=== PATIENT | female | born 1940 | race Hispanic/Latino ===

== ENCOUNTER 2021-02-25 09:49 | Inpatient (IN) | payer MEDICARE ==
[2021-02-25 11:41] LABS: #Basophils 0.1 thou/uL (0.0-0.2); #Eosinphils 0.2 thou/uL (0.0-0.7); #Lymphocytes 1.7 thou/uL (1.20-3.40); #Monocytes 0.6 thou/uL (0.11-0.59); #Neutrophils 2.4 thou/uL (1.40-6.50); %Basophils 1.3 % (0.0-1.0); %Eosinophils 4.6 % (0.0-10.0); %Lymphocytes 34.3 % (21.0-51.0); %Monocytes 11.1 % (0.0-10.0); %Neutrophils 48.7 % (42.0-75.0); Hemoglobin 11.1 g/dL (12.0-16.0); Mean Corpuscular HGB CONC 33.2 g/dL (32.0-36.0); Mean Corpuscular Hemoglobin 31.7 pg (27.0-31.0); Mean Corpuscular Volume 95.5 fL (78.0-98.0); Mean Platelet Volume 6.4 fL (7.4-10.4); Platelet Count 143 thou/uL (130-400); RBC Distribution Width 14.3 % (11.5-14.5)
[2021-02-25 12:04] LABS: ALT (SGPT) 12 U/L (8-55); AST (SGOT) 27 U/L (5-34); Albumin 2.1 g/dL (3.4-4.8); Alkaline Phosphatase 128 U/L (40-110); Anion Gap 13 mmol/L (10-20); BUN (Urea Nitrogen) 32 mg/dL (9.8-20.1); Bilirubin, Total 0.6 mg/dL (0.2-1.2); Calc. Creatinine Clearance 0 mL/min (70-130); Calcium 7.4 mg/dL (7.8-10.44); Carbon Dioxide 19 mmol/L (23-31); Chloride 106 mmol/L (98-107); Globulin 3.9 g/dL (2.4-3.5); Glucose 127 mg/dL (83-110); Potassium 4.1 mmol/L (3.5-5.1); Sodium 134 mmol/L (136-145)
[2021-02-25 12:08] LABS: Bacteria/HPF 4+ HPF (None Seen); Bilirubin Negative (Negative); Blood, Urine Negative (Negative); Clarity Turbid (Clear); Glucose, Urine (Dipstick) Normal (Negative); Ketone, Urine Trace mg/dL (Negative); Leukocyte 500 Leu/uL (Negative); Nitrite Negative (Negative); Protein, Urine (Dipstick) 20 mg/dL (Neg-Trace); RBC/HPF 0-3 HPF (0-3); Specific Gravity, Urine 1.016 (1.002-1.036); Squamous Epithelial 0-3 HPF (0-3); Urobilinogen Normal mg/dL (Less than 2); WBC/HPF Greater than 50 HPF (0-3); pH, Urine 6.5 (5.0-9.0)
[2021-02-25 13:32] LABS: SARS-CoV-2 NAA Rapid Test DETECTED (NotDetected)
[2021-02-25] MEDS ORDERED: Ondansetron ODT 4 MG TAB PO PRN (13:41)
[2021-02-25] MEDS ORDERED: Ondansetron PF 4 MG/2 ML Vial IVP PRN (13:41)
[2021-02-25] MEDS ORDERED: Acetaminophen 650 MG Suppository PR PRN (13:41)
[2021-02-25] MEDS ORDERED: Acetaminophen 325 MG TAB PO PRN (13:41)
[2021-02-25] MEDS ORDERED: HumaLOG 300 UNITS/3 ML VIAL SC PRN (14:20)
[2021-02-25] MEDS ORDERED: Dextrose 5% in Water 1,000 ML IV PRN (14:20)
[2021-02-25] MEDS ORDERED: Dextrose 50% Abboject 50 ML SYRINGE SLOW IVP PRN (14:20)
[2021-02-25] MEDS ORDERED: Cefepime 1 GM in Sodium Chloride 0.9% 100 ML IVPB SCH (15:00)
[2021-02-25 21:29] VITALS: BMI 25.5
[2021-02-26 05:22] LABS: #Eosinphils 0.2 thou/uL (0.0-0.7); #Lymphocytes 1.2 thou/uL (1.20-3.40); #Monocytes 0.5 thou/uL (0.11-0.59); %Basophils 0.8 % (0.0-1.0); %Eosinophils 4.8 % (0.0-10.0); %Lymphocytes 29.6 % (21.0-51.0); %Monocytes 12.7 % (0.0-10.0); Hemoglobin 9.2 g/dL (12.0-16.0); Mean Corpuscular HGB CONC 32.5 g/dL (32.0-36.0); Mean Corpuscular Hemoglobin 30.9 pg (27.0-31.0); Mean Corpuscular Volume 95.3 fL (78.0-98.0); Mean Platelet Volume 6.4 fL (7.4-10.4); Platelet Count 133 thou/uL (130-400); RBC Distribution Width 14.2 % (11.5-14.5); Red Blood Cell (RBC) Count 2.97 mill/uL (4.20-5.40); White Blood Cell (WBC) Count 3.9 thou/uL (4.8-10.8)
[2021-02-26] MEDS ORDERED: Nystatin Powder 15 GM BOT TOP PRN (05:27)
[2021-02-26 05:41] LABS: Anion Gap 10 mmol/L (10-20); BUN (Urea Nitrogen) 33 mg/dL (9.8-20.1); Calc. Creatinine Clearance 13 mL/min (70-130); Calcium 8.3 mg/dL (7.8-10.44); Carbon Dioxide 25 mmol/L (23-31); Chloride 110 mmol/L (98-107); Glucose 76 mg/dL (83-110); Potassium 3.9 mmol/L (3.5-5.1); Sodium 141 mmol/L (136-145)
[2021-02-26] MEDS ORDERED: Levothyroxine Sodium 75 MCG TAB PO SCH (06:00)
[2021-02-26] MEDS ORDERED: Calcium Carbonate 500 MG ChewTAB PO PRN (06:32)
[2021-02-26] MEDS ORDERED: Cepastat Lozenges 1 LOZ PO PRN (06:32)
[2021-02-26] MEDS ORDERED: hydrALAZINE 20 MG/ML VIAL SLOW IVP PRN (06:32)
[2021-02-26] MEDS ORDERED: GUAIFENESIN SF SOLN 200 MG/10 ML UDCUP PO PRN (06:32)
[2021-02-26] MEDS ORDERED: Benzonatate 100 MG CAP PO PRN (06:32)
[2021-02-26] MEDS ORDERED: Artificial Tear Sol 15 ML BOT EA EYE PRN (06:32)
[2021-02-26] MEDS ORDERED: Hydrocerin (Eucerin) Cream 120 gm Jar TOP PRN (06:32)
[2021-02-26] MEDS ORDERED: Sodium Chloride 0.65% Nasal 44 ML BOT EA NARE PRN (06:32)
[2021-02-26] MEDS ORDERED: Aspirin 81 mg Enteric Coated Tablet PO SCH (09:00)
[2021-02-26] MEDS ORDERED: Albuterol 200 PUFF (6.7GM INHALER) INH PRN (09:29)
[2021-02-26 10:43] LABS: HBSAg Index 0.22 S/CO (0-0.99); Hep B Surf Ag Non-Reactive S/CO (NonReactive)
[2021-02-26] MEDS: Ascorbic Acid 500 mg Chewable Tablet PO SCH (10:53)
[2021-02-26] MEDS: Cholecalciferol 1,000 UNITS (25 MCG) TAB PO SCH (10:53)
[2021-02-26] MEDS: Sevelamer Carbonate 800 MG TAB PO SCH ×2 (12:19→18:12)
[2021-02-26] MEDS: Cefepime 0.5 GM in Sodium Chloride 0.9% 100 ML IVPB SCH (14:44)
[2021-02-26] MEDS: Albuterol 200 PUFF (6.7GM INHALER) INH SCH ×2 (14:44→18:13)
[2021-02-26] MEDS: Mometasone 200 MCG/Formoterol 5 MCG 120 PUFF INHALER INH SCH (18:46)
[2021-02-26] MEDS: Rifaximin 550 MG TAB PO SCH (20:58)
[2021-02-27] MEDS: Albuterol 200 PUFF (6.7GM INHALER) INH SCH ×4 (01:00→18:44)
[2021-02-27 04:37] LABS: ALT (SGPT) 10 U/L (8-55); AST (SGOT) 23 U/L (5-34); Albumin 1.7 g/dL (3.4-4.8); Alkaline Phosphatase 84 U/L (40-110); Bilirubin, Direct 0.3 mg/dL (0.1-0.3); Bilirubin, Total 0.5 mg/dL (0.2-1.2); Phosphorus 2.1 mg/dL (2.3-4.7); Protein, Total 4.9 g/dL (5.8-8.1)
[2021-02-27 04:38] LABS: Anion Gap 8 mmol/L (10-20); BUN (Urea Nitrogen) 15 mg/dL (9.8-20.1); Calc. Creatinine Clearance 19 mL/min (70-130); Calcium 7.9 mg/dL (7.8-10.44); Carbon Dioxide 29 mmol/L (23-31); Chloride 107 mmol/L (98-107); Glucose 80 mg/dL (83-110); Magnesium 1.8 mg/dL (1.6-2.6); Potassium 3.6 mmol/L (3.5-5.1); Sodium 140 mmol/L (136-145)
[2021-02-27] MEDS: Levothyroxine Sodium 88 MCG TAB PO SCH (05:21)
[2021-02-27 06:03] LABS: #Eosinphils 0.2 thou/uL (0.0-0.7); #Lymphocytes 1.2 thou/uL (1.20-3.40); #Monocytes 0.5 thou/uL (0.11-0.59); #Neutrophils 1.8 thou/uL (1.40-6.50); %Basophils 0.8 % (0.0-1.0); %Eosinophils 6.1 % (0.0-10.0); %Lymphocytes 31.6 % (21.0-51.0); %Monocytes 14.2 % (0.0-10.0); %Neutrophils 47.3 % (42.0-75.0); Hemoglobin 8.7 g/dL (12.0-16.0); Mean Corpuscular HGB CONC 32.8 g/dL (32.0-36.0); Mean Corpuscular Hemoglobin 31.1 pg (27.0-31.0); Mean Corpuscular Volume 94.9 fL (78.0-98.0); Mean Platelet Volume 6.5 fL (7.4-10.4); Platelet Count 93 thou/uL (130-400); Platelet Morphology Comment Appears Decreased; RBC Distribution Width 14.1 % (11.5-14.5); Red Blood Cell (RBC) Count 2.79 mill/uL (4.20-5.40); White Blood Cell (WBC) Count 3.7 thou/uL (4.8-10.8)
[2021-02-27] MEDS: Mometasone 200 MCG/Formoterol 5 MCG 120 PUFF INHALER INH SCH ×2 (06:28→18:43)
[2021-02-27] MEDS ORDERED: PHOS-NAK 1 PKT PACK PO SCH (07:15)
[2021-02-27] MEDS: Aspirin 81 mg Enteric Coated Tablet PO SCH (08:51)
[2021-02-27] MEDS: Rifaximin 550 MG TAB PO SCH ×2 (08:51→21:01)
[2021-02-27] MEDS: Zinc Sulfate 220 MG CAP PO SCH (08:51)
[2021-02-27] MEDS: Sevelamer Carbonate 800 MG TAB PO SCH ×3 (08:51→17:20)
[2021-02-27] MEDS: Ferrous Sulfate 325 MG TAB PO SCH (08:52)
[2021-02-27] MEDS: Cholecalciferol 1,000 UNITS (25 MCG) TAB PO SCH (08:52)
[2021-02-27] MEDS: Ascorbic Acid 500 mg Chewable Tablet PO SCH (08:52)
[2021-02-27] MEDS ORDERED: Cholecalciferol 1,000 UNITS (25 MCG) TAB PO SCH (09:00)
[2021-02-27] MEDS: HumaLOG 300 UNITS/3 ML VIAL SC PRN ×2 (11:47→17:27)
[2021-02-27] MEDS: Cefepime 0.5 GM in Sodium Chloride 0.9% 100 ML IVPB SCH (14:44)
[2021-02-28] MEDS: Albuterol 200 PUFF (6.7GM INHALER) INH SCH ×3 (01:23→15:16)
[2021-02-28] MEDS: Mometasone 200 MCG/Formoterol 5 MCG 120 PUFF INHALER INH SCH (06:13)
[2021-02-28] MEDS: Levothyroxine Sodium 88 MCG TAB PO SCH (06:13)
[2021-02-28 07:18] LABS: #Eosinphils 0.2 thou/uL (0.0-0.7); #Lymphocytes 1.2 thou/uL (1.20-3.40); #Monocytes 0.5 thou/uL (0.11-0.59); #Neutrophils 2.2 thou/uL (1.40-6.50); %Basophils 0.9 % (0.0-1.0); %Eosinophils 5.7 % (0.0-10.0); %Lymphocytes 29.1 % (21.0-51.0); %Monocytes 11.7 % (0.0-10.0); %Neutrophils 52.6 % (42.0-75.0); Hemoglobin 9.2 g/dL (12.0-16.0); Mean Corpuscular HGB CONC 31.9 g/dL (32.0-36.0); Mean Corpuscular Hemoglobin 30.3 pg (27.0-31.0); Mean Platelet Volume 6.6 fL (7.4-10.4); Platelet Count 109 thou/uL (130-400); RBC Distribution Width 13.9 % (11.5-14.5); Red Blood Cell (RBC) Count 3.03 mill/uL (4.20-5.40); White Blood Cell (WBC) Count 4.3 thou/uL (4.8-10.8)
[2021-02-28 07:24] LABS: Anion Gap 10 mmol/L (10-20); BUN (Urea Nitrogen) 23 mg/dL (9.8-20.1); Calc. Creatinine Clearance 13 mL/min (70-130); Calcium 7.7 mg/dL (7.8-10.44); Carbon Dioxide 26 mmol/L (23-31); Chloride 105 mmol/L (98-107); Glucose 83 mg/dL (83-110); Sodium 137 mmol/L (136-145)
[2021-02-28 07:27] VITALS: TEMP 98
[2021-02-28] MEDS: Sevelamer Carbonate 800 MG TAB PO SCH ×2 (07:49→13:07)
[2021-02-28] MEDS: Rifaximin 550 MG TAB PO SCH (07:49)
[2021-02-28] MEDS: Aspirin 81 mg Enteric Coated Tablet PO SCH (07:49)
[2021-02-28] MEDS: Ferrous Sulfate 325 MG TAB PO SCH (07:49)
[2021-02-28] MEDS: Zinc Sulfate 220 MG CAP PO SCH (07:49)
[2021-02-28] MEDS: Ascorbic Acid 500 mg Chewable Tablet PO SCH (07:49)
[2021-02-28] MEDS: Cholecalciferol 1,000 UNITS (25 MCG) TAB PO SCH (07:50)
[2021-02-28 15:12] VITALS: BP 168/75
[2021-02-28] MEDS: Cefepime 0.5 GM in Sodium Chloride 0.9% 100 ML IVPB SCH (15:16)
== END 2021-02-28 16:09 | disposition home or self-care (01) | DRG 441 ==
LOC: ERS 09:49 → T4-B 13:08
PROVIDERS: ADMIT Internal Medicine; ATTEND Internal Medicine
PROC: 5A1D70Z Performance of Urinary Filtration, Intermittent, Less than 6 Hours Per Day (ICD-10-PCS; principal; 2021-02-25)
PROC: 8E0ZXY6 Isolation (ICD-10-PCS; 2021-02-25)
DX: K72.90 Hepatic failure, unspecified without coma (principal); U07.1 COVID-19; N18.6 End stage renal disease; G93.41 Metabolic encephalopathy; N30.00 Acute cystitis without hematuria; I12.0 Hypertensive chronic kidney disease with stage 5 chronic kidney disease or end stage renal disease; T82.49XA Other complication of vascular dialysis catheter, initial encounter; E78.5 Hyperlipidemia, unspecified; F32.A Depression, unspecified; J44.9 Chronic obstructive pulmonary disease, unspecified; E11.9 Type 2 diabetes mellitus without complications; I25.10 Atherosclerotic heart disease of native coronary artery without angina pectoris; K74.60 Unspecified cirrhosis of liver; D63.1 Anemia in chronic kidney disease; Y83.8 Other surgical procedures as the cause of abnormal reaction of the patient, or of later complication, without mention of misadventure at the time of the procedure; Z99.2 Dependence on renal dialysis; Z88.1 Allergy status to other antibiotic agents; Z88.5 Allergy status to narcotic agent; Z88.8 Allergy status to other drugs, medicaments and biological substances; Z79.899 Other long term (current) drug therapy; Z79.4 Long term (current) use of insulin; Z95.1 Presence of aortocoronary bypass graft; Z90.710 Acquired absence of both cervix and uterus; Z91.14 Patient's other noncompliance with medication regimen
CPT/HCPCS: 0240U; 36415; 36416; 71045; 80048; 80053; 80076; 81003; 81015; 82140; 83735; 84100; 84484; 85025; 87340; 90935; 93005; 93931; G0257; J0692; J1815; J1956; J3490

== ENCOUNTER 2021-05-13 08:13 | Inpatient (IN) | payer MEDICARE ==
[2021-05-13 08:56] LABS: Bilirubin Negative (Negative); Blood, Urine Negative (Negative); Glucose, Urine (Dipstick) Negative (Negative); Ketone, Urine Negative (Negative); Leukocyte Trace (Negative); Nitrite Negative (Negative); Protein, Urine (Dipstick) 30 mg/dL (Neg-Trace); Urobilinogen 0.2 mg/dL (Less than 2)
[2021-05-13 09:01] LABS: Clarity Cloudy (Clear)
[2021-05-13 09:05] LABS: Amphetamine Not Detected (NotDetected); Barbiturates Screen Not Detected (NotDetected); Benzodiazepine Screen Not Detected (NotDetected); Cocaine Metabolite Screen Not Detected (NotDetected); Methadone Not Detected (NotDetected); Methamphetamine Not Detected (NotDetected); Opiate Screen Not Detected (NotDetected); Oxycodone Screen Not Detected (NotDetected); Phencyclidine (PCP) Not Detected (NotDetected); THC/Cannabinoid Screen Not Detected (NotDetected); Tricyclic Screen Not Detected (NotDetected)
[2021-05-13 09:06] LABS: RBC/HPF 0-3 HPF (0-3)
[2021-05-13 09:07] LABS: Bacteria/HPF 4+ HPF (None Seen); Squamous Epithelial 0-3 HPF (0-3)
[2021-05-13 09:13] LABS: #Eosinphils 0.2 thou/uL (0.0-0.7); #Lymphocytes 1.1 thou/uL (1.20-3.40); #Monocytes 0.5 thou/uL (0.11-0.59); #Neutrophils 2.4 thou/uL (1.40-6.50); %Basophils 0.9 % (0.0-1.0); %Eosinophils 4.3 % (0.0-10.0); %Lymphocytes 25.3 % (21.0-51.0); %Monocytes 12.1 % (0.0-10.0); %Neutrophils 57.4 % (42.0-75.0); Hemoglobin 11.2 g/dL (12.0-16.0); Mean Corpuscular HGB CONC 32.5 g/dL (32.0-36.0); Mean Corpuscular Hemoglobin 31.7 pg (27.0-31.0); Mean Corpuscular Volume 97.4 fL (78.0-98.0); Mean Platelet Volume 7.1 fL (7.4-10.4); Platelet Count 120 thou/uL (130-400); RBC Distribution Width 15.7 % (11.5-14.5); Red Blood Cell (RBC) Count 3.53 mill/uL (4.20-5.40); White Blood Cell (WBC) Count 4.2 thou/uL (4.8-10.8)
[2021-05-13 09:26] LABS: ALT (SGPT) 18 U/L (8-55); AST (SGOT) 26 U/L (5-34); Acetaminophen Less than 6.0 mcg/mL (10.0-30.0); Albumin 2.8 g/dL (3.4-4.8); Alcohol Less than 10 mg/dL (Less than 10); Alkaline Phosphatase 135 U/L (40-110); Anion Gap 14 mmol/L (10-20); BUN (Urea Nitrogen) 28 mg/dL (9.8-20.1); Bilirubin, Total 0.6 mg/dL (0.2-1.2); Calc. Creatinine Clearance 0 mL/min (70-130); Calcium 8.8 mg/dL (7.8-10.44); Carbon Dioxide 26 mmol/L (23-31); Chloride 106 mmol/L (98-107); Globulin 3.7 g/dL (2.4-3.5); Glucose 108 mg/dL (83-110); Magnesium 2.1 mg/dL (1.6-2.6); Potassium 3.9 mmol/L (3.5-5.1); Protein, Total 6.5 g/dL (5.8-8.1); Salicylate Less than 8.0 mg/dL (15.0-30.0); Sodium 142 mmol/L (136-145)
[2021-05-13 09:27] LABS: INR-International Normal Ratio 1.1; Prothrombin Time 13.8 sec (12.0-14.7)
[2021-05-13 09:28] LABS: PTT 30.4 sec (22.9-36.1)
[2021-05-13] MEDS ORDERED: cefTRIAXone\\ROCEPHIN 1 GM VIAL ONE (10:28)
[2021-05-13] MEDS ORDERED: Ondansetron ODT 4 MG TAB PO PRN (10:55)
[2021-05-13] MEDS ORDERED: Ondansetron PF 4 MG/2 ML Vial IVP PRN (10:55)
[2021-05-13] MEDS ORDERED: Calcium Carbonate 500 MG ChewTAB PO PRN (10:55)
[2021-05-13] MEDS ORDERED: Dextrose 50% Abboject 50 ML SYRINGE SLOW IVP PRN (11:32)
[2021-05-13] MEDS ORDERED: Dextrose 5% in Water 1,000 ML IV PRN (11:32)
[2021-05-13] MEDS ORDERED: HumaLOG 300 UNITS/3 ML VIAL SC PRN ×2 (11:32)
[2021-05-13 12:45] VITALS: BMI 22.7
[2021-05-13] MEDS ORDERED: Heparin 5,000 UNITS/ML VIAL SC SCH (15:00)
[2021-05-13] MEDS: hydrALAZINE 25 MG TAB PO SCH ×4 (15:08→22:02)
[2021-05-13 15:39] LABS: Free T4 (Free Thyroxine) 1.4 ng/dL (0.70-1.48)
[2021-05-13] MEDS ORDERED: hydrALAZINE 20 MG/ML VIAL SLOW IVP PRN (15:58)
[2021-05-13] MEDS ORDERED: Dextrose 5 %-0.45 % NaCl 1,000 ML IV SCH (16:15)
[2021-05-13 19:26] LABS: Hemoglobin 10.9 g/dL (12.0-16.0)
[2021-05-13] MEDS: Rifaximin 550 MG TAB PO SCH (22:01)
[2021-05-13] MEDS: Famotidine/PF 20 mg/2ml Vial SLOW IVP SCH (22:01)
[2021-05-13] MEDS: Betamethasone Val 0.1% OINT 15 GM TUBE TOP SCH (22:02)
[2021-05-13] MEDS: Chlorhexidine Gluconate 15 ML UDCUP SSP SCH (22:03)
[2021-05-13] MEDS: Lantus 1000 UNITS/10 ML VIAL SC SCH (22:04)
[2021-05-14 04:29] LABS: Eosinophils 3 % (0-10); Hemoglobin 11.8 g/dL (12.0-16.0); Lymphocytes 28 % (21-51); MDiff Complete? YES; Mean Corpuscular HGB CONC 31.3 g/dL (32.0-36.0); Mean Corpuscular Volume 99.3 fL (78.0-98.0); Mean Platelet Volume 7.5 fL (7.4-10.4); Monocytes 8 % (0-10); Neutrophil 60 % (42-75); Platelet Count 65 thou/uL (130-400); Platelet Morphology Comment Appears Decreased; RBC Distribution Width 15.9 % (11.5-14.5); Red Blood Cell (RBC) Count 3.81 mill/uL (4.20-5.40); White Blood Cell (WBC) Count 4.4 thou/uL (4.8-10.8)
[2021-05-14 04:55] LABS: ALT (SGPT) 23 U/L (8-55); AST (SGOT) 53 U/L (5-34); Albumin 2.6 g/dL (3.4-4.8); Alkaline Phosphatase 111 U/L (40-110); Anion Gap 16 mmol/L (10-20); BUN (Urea Nitrogen) 32 mg/dL (9.8-20.1); Bilirubin, Total 0.7 mg/dL (0.2-1.2); Calc. Creatinine Clearance 13 mL/min (70-130); Calcium 8.7 mg/dL (7.8-10.44); Carbon Dioxide 21 mmol/L (23-31); Chloride 109 mmol/L (98-107); Glucose 135 mg/dL (83-110); Potassium 4.4 mmol/L (3.5-5.1); Protein, Total 6.6 g/dL (5.8-8.1); Sodium 142 mmol/L (136-145)
[2021-05-14] MEDS: Levothyroxine Sodium 88 MCG TAB PO SCH (06:15)
[2021-05-14] MEDS: Cholecalciferol 1,000 UNITS (25 MCG) TAB PO SCH (09:32)
[2021-05-14] MEDS: Lantus 1000 UNITS/10 ML VIAL SC SCH ×2 (09:32→21:29)
[2021-05-14] MEDS: Ascorbic Acid 500 mg Chewable Tablet PO SCH (09:32)
[2021-05-14] MEDS: Aspirin 81 mg Enteric Coated Tablet PO SCH (09:32)
[2021-05-14] MEDS: Ferrous Sulfate 325 MG TAB PO SCH (09:32)
[2021-05-14] MEDS: Zinc Sulfate 220 MG CAP PO SCH (09:32)
[2021-05-14] MEDS: Rifaximin 550 MG TAB PO SCH ×2 (09:32→21:26)
[2021-05-14] MEDS: hydrALAZINE 25 MG TAB PO SCH ×2 (09:32→21:27)
[2021-05-14] MEDS: Betamethasone Val 0.1% OINT 15 GM TUBE TOP SCH ×2 (09:33→21:28)
[2021-05-14] MEDS: Chlorhexidine Gluconate 15 ML UDCUP SSP SCH ×2 (09:36→21:29)
[2021-05-14] MEDS: cefTRIAXone\\ROCEPHIN 1 GM in Sodium Chloride 0.9% 100 ML IVPB SCH (12:36)
[2021-05-14] MEDS ORDERED: Famotidine 20 MG TAB PO SCH (21:00)
[2021-05-14] MEDS: Famotidine/PF 20 mg/2ml Vial SLOW IVP SCH (21:26)
[2021-05-14 23:15] LABS: SARS-CoV-2 PCR by NAA DETECTED (NotDetected)
[2021-05-15 05:21] LABS: #Eosinphils 0.5 thou/uL (0.0-0.7); #Lymphocytes 1.1 thou/uL (1.20-3.40); #Monocytes 0.6 thou/uL (0.11-0.59); #Neutrophils 2.8 thou/uL (1.40-6.50); %Basophils 0.7 % (0.0-1.0); %Eosinophils 10.6 % (0.0-10.0); %Lymphocytes 21.1 % (21.0-51.0); %Monocytes 12.6 % (0.0-10.0); %Neutrophils 55.1 % (42.0-75.0); Hemoglobin 10.3 g/dL (12.0-16.0); Mean Corpuscular Hemoglobin 31.1 pg (27.0-31.0); Mean Corpuscular Volume 97.3 fL (78.0-98.0); Platelet Count 123 thou/uL (130-400); RBC Distribution Width 15.7 % (11.5-14.5); White Blood Cell (WBC) Count 5.1 thou/uL (4.8-10.8)
[2021-05-15 05:47] LABS: ALT (SGPT) 16 U/L (8-55); AST (SGOT) 22 U/L (5-34); Albumin 2.5 g/dL (3.4-4.8); Alkaline Phosphatase 102 U/L (40-110); Anion Gap 16 mmol/L (10-20); BUN (Urea Nitrogen) 35 mg/dL (9.8-20.1); Bilirubin, Total 0.6 mg/dL (0.2-1.2); Calc. Creatinine Clearance 10 mL/min (70-130); Calcium 8.1 mg/dL (7.8-10.44); Carbon Dioxide 21 mmol/L (23-31); Chloride 110 mmol/L (98-107); Globulin 3.3 g/dL (2.4-3.5); Glucose 106 mg/dL (83-110); Potassium 3.5 mmol/L (3.5-5.1); Protein, Total 5.8 g/dL (5.8-8.1); Sodium 143 mmol/L (136-145)
[2021-05-15] MEDS: Levothyroxine Sodium 88 MCG TAB PO SCH (05:50)
[2021-05-15] MEDS: Levothyroxine Sodium 75 MCG TAB PO SCH ×2 (05:52→09:25)
[2021-05-15] MEDS: hydrALAZINE 25 MG TAB PO SCH (09:24)
[2021-05-15] MEDS: Zinc Sulfate 220 MG CAP PO SCH (09:24)
[2021-05-15] MEDS: Aspirin 81 mg Enteric Coated Tablet PO SCH (09:24)
[2021-05-15] MEDS: Ferrous Sulfate 325 MG TAB PO SCH (09:24)
[2021-05-15] MEDS: Ascorbic Acid 500 mg Chewable Tablet PO SCH (09:24)
[2021-05-15] MEDS: Rifaximin 550 MG TAB PO SCH (09:25)
[2021-05-15] MEDS: Cholecalciferol 1,000 UNITS (25 MCG) TAB PO SCH (09:25)
[2021-05-15] MEDS: Chlorhexidine Gluconate 15 ML UDCUP SSP SCH (10:16)
[2021-05-15 11:53] LABS: HBSAB Concentration Less than 8.00 mIU/mL; HBSAg Index 0.26 S/CO (0-0.99); Hep B Surf AB Non-Reactive (NonReactive); Hep B Surf Ag Non-Reactive S/CO (NonReactive)
[2021-05-15] MEDS: Betamethasone Val 0.1% OINT 15 GM TUBE TOP SCH (11:56)
[2021-05-15] MEDS: Lantus 1000 UNITS/10 ML VIAL SC SCH (11:56)
[2021-05-15] MEDS: cefTRIAXone\\ROCEPHIN 1 GM in Sodium Chloride 0.9% 100 ML IVPB SCH (12:05)
[2021-05-15 16:48] VITALS: BP 157/59; TEMP 97.4
== END 2021-05-15 18:18 | disposition home or self-care (01) | DRG 441 ==
LOC: ERS 08:13 → 2NO 10:55 → SURG B 05-14 14:32 → T4-A 05-15 08:34
PROVIDERS: ADMIT Internal Medicine; ATTEND Family Medicine
PROC: 8E0ZXY6 Isolation (ICD-10-PCS; 2021-05-13)
PROC: 5A1D70Z Performance of Urinary Filtration, Intermittent, Less than 6 Hours Per Day (ICD-10-PCS; principal; 2021-05-15)
DX: K72.00 Acute and subacute hepatic failure without coma (principal); N18.6 End stage renal disease; U07.1 COVID-19; K76.7 Hepatorenal syndrome; N30.00 Acute cystitis without hematuria; I12.0 Hypertensive chronic kidney disease with stage 5 chronic kidney disease or end stage renal disease; B96.1 Klebsiella pneumoniae [K. pneumoniae] as the cause of diseases classified elsewhere; E03.9 Hypothyroidism, unspecified; K74.60 Unspecified cirrhosis of liver; I25.10 Atherosclerotic heart disease of native coronary artery without angina pectoris; L40.9 Psoriasis, unspecified; E11.22 Type 2 diabetes mellitus with diabetic chronic kidney disease; R94.31 Abnormal electrocardiogram [ECG] [EKG]; D63.1 Anemia in chronic kidney disease; F32.A Depression, unspecified; Z99.2 Dependence on renal dialysis; Z88.6 Allergy status to analgesic agent; Z88.1 Allergy status to other antibiotic agents; Z88.8 Allergy status to other drugs, medicaments and biological substances; Z79.899 Other long term (current) drug therapy; Z79.82 Long term (current) use of aspirin; Z79.4 Long term (current) use of insulin; Z79.890 Hormone replacement therapy; Z95.1 Presence of aortocoronary bypass graft; Z90.710 Acquired absence of both cervix and uterus
CPT/HCPCS: 36415; 36416; 51701; 70450; 71045; 80053; 80306; 80307; 81003; 81015; 82140; 83735; 84439; 84443; 84481; 84484; 85007; 85025; 85027; 85610; 85730; 86706; 87077; 87086; 87186; 87340; 93005; 94760; 96365; 96366; J0696; J1644; J1815; J3490; J7042; S0028; U0003; U0005

== ENCOUNTER 2021-07-19 13:26 | Outpatient (CLI) | payer MEDICARE | END 2021-07-19 13:27 | disposition home or self-care (01) | LOC: ULT 13:26 | PROVIDERS: ATTEND Student in an Organized Health Care Education/Training Program | DX: I35.0 Nonrheumatic aortic (valve) stenosis (principal); I07.1 Rheumatic tricuspid insufficiency | CPT/HCPCS: 93306 ==

== ENCOUNTER 2022-09-26 08:52 | Outpatient (CLI) | payer OTHER | END 2022-09-26 08:53 | disposition home or self-care (01) | LOC: SCSMRI 08:52 | PROVIDERS: ATTEND Student in an Organized Health Care Education/Training Program | DX: K86.2 Cyst of pancreas (principal) | CPT/HCPCS: 74183 ==

== ENCOUNTER 2022-11-07 20:43 | Inpatient (IN) | payer MEDICARE, OTHER ==
[2022-11-07 21:38] LABS: #Eosinphils 0.1 thou/uL (0.0-0.7); #Monocytes 0.4 thou/uL (0.11-0.59); %Basophils 1.6 % (0.0-1.0); %Eosinophils 4.8 % (0.0-10.0); %Monocytes 16.8 % (0.0-10.0); %Neutrophils 38.8 % (42.0-75.0); Hemoglobin 7.8 g/dL (12.0-16.0); Mean Corpuscular HGB CONC 31.5 g/dL (32.0-36.0); Mean Corpuscular Hemoglobin 31.7 pg (27.0-31.0); Mean Corpuscular Volume 100.8 fl (78.0-98.0); Mean Platelet Volume 10.1 fL (7.4-10.4); Platelet Count 126 10x3/uL (130-400); RBC Distribution Width 17.1 % (11.5-14.5); Red Blood Cell (RBC) Count 2.46 mill/uL (4.20-5.40); White Blood Cell (WBC) Count 2.5 10x3/uL (4.8-10.8)
[2022-11-07 22:03] LABS: ALT (SGPT) 9 U/L (8-55); AST (SGOT) 16 U/L (5-34); Alkaline Phosphatase 89 U/L (40-110); Anion Gap 21 mmol/L (10-20); BUN (Urea Nitrogen) 62 mg/dL (9.8-20.1); Bilirubin, Total 0.3 mg/dL (0.2-1.2); CK (CPK) 67 U/L (29-168); Calc. Creatinine Clearance 0 mL/min (70-130); Carbon Dioxide 20 mmol/L (23-31); Chloride 105 mmol/L (98-107); Estimated GFR 4; Globulin 2.7 g/dL (2.4-3.5); Glucose 142 mg/dL (83-110); Potassium 4.7 mmol/L (3.5-5.1); Protein, Total 5.7 g/dL (5.8-8.1); Sodium 141 mmol/L (136-145)
[2022-11-07] MEDS ORDERED: Vancomycin 1 GM/200 ML (FROZEN) BAG ONE (22:11)
[2022-11-07 22:34] LABS: Bacteria/HPF 4+ HPF (None Seen); Bilirubin Negative (Negative); Blood, Urine 2+ (Negative); CAUTI Indications for Culture Alt mental st,lethar; Clarity Extra Turbid (Clear); Glucose, Urine (Dipstick) Normal (Negative); Ketone, Urine Negative (Negative); Leukocyte 500 Leu/uL (Negative); Nitrite Negative (Negative); Protein, Urine (Dipstick) 100 mg/dL (Neg-Trace); Specific Gravity, Urine 1.015 (1.002-1.036); Urobilinogen Normal mg/dL (Less than 2); WBC/HPF Greater than 50 HPF (0-3); pH, Urine 6.5 (5.0-9.0)
[2022-11-07 22:36] LABS: Urine Culture Reflex Yes Yes
[2022-11-07] MEDS ORDERED: Ondansetron PF 4 MG/2 ML Vial IVP PRN (23:56)
[2022-11-07] MEDS ORDERED: Dextrose 5% in Water 1,000 ML IV PRN (23:57)
[2022-11-07] MEDS ORDERED: HumaLOG 300 UNITS/3 ML VIAL SC PRN (23:57)
[2022-11-07] MEDS ORDERED: Dextrose 50% Abboject 50 ML SYRINGE SLOW IVP PRN (23:57)
[2022-11-07] MEDS ORDERED: Glucagon 1 MG/ML KIT IM PRN (23:57)
[2022-11-08] MEDS: Cefepime 1 GM in Sodium Chloride 0.9% 100 ML IVPB SCH (00:45)
[2022-11-08 01:27] VITALS: BMI 24.0
[2022-11-08 04:55] LABS: #Eosinphils 0.1 thou/uL (0.0-0.7); #Monocytes 0.5 thou/uL (0.11-0.59); #Neutrophils 1.2 thou/uL (1.40-6.50); %Basophils 1.5 % (0.0-1.0); %Eosinophils 4.8 % (0.0-10.0); %Lymphocytes 30.3 % (21.0-51.0); %Monocytes 18.1 % (0.0-10.0); %Neutrophils 44.9 % (42.0-75.0); Mean Corpuscular Hemoglobin 31.1 pg (27.0-31.0); Mean Platelet Volume 10.3 fL (7.4-10.4); RBC Distribution Width 17.1 % (11.5-14.5); Red Blood Cell (RBC) Count 2.57 mill/uL (4.20-5.40); White Blood Cell (WBC) Count 2.7 10x3/uL (4.8-10.8)
[2022-11-08 05:02] LABS: Platelet Count 113 10x3/uL (130-400)
[2022-11-08 05:12] LABS: Mean Corpuscular Volume 103.9 fl (78.0-98.0)
[2022-11-08 05:23] LABS: ALT (SGPT) 10 U/L (8-55); AST (SGOT) 17 U/L (5-34); Albumin 2.8 g/dL (3.4-4.8); Alkaline Phosphatase 75 U/L (40-110); Anion Gap 19 mmol/L (10-20); BUN (Urea Nitrogen) 60 mg/dL (9.8-20.1); Bilirubin, Total 0.4 mg/dL (0.2-1.2); Calc. Creatinine Clearance 5 mL/min (70-130); Calcium 7.9 mg/dL (7.8-10.44); Carbon Dioxide 18 mmol/L (23-31); Chloride 107 mmol/L (98-107); Estimated GFR 4; Globulin 2.8 g/dL (2.4-3.5); Glucose 107 mg/dL (83-110); Potassium 4.4 mmol/L (3.5-5.1); Protein, Total 5.6 g/dL (5.8-8.1); Sodium 140 mmol/L (136-145)
[2022-11-08] MEDS: Levothyroxine Sodium 50 MCG TAB PO SCH (05:44)
[2022-11-08 09:43] LABS: HBSAB Concentration Less than 8.00 mIU/mL; HBSAg Index 0.24 S/CO (0-0.99); Hep B Surf AB Non-Reactive (NonReactive); Hep B Surf Ag Non-Reactive S/CO (NonReactive)
[2022-11-08] MEDS: Rifaximin 200 MG TAB PO SCH ×2 (10:11→22:13)
[2022-11-08 15:34] LABS: Actual Bicarbonate (HCO3v) 24.6 mEq/L (22-28); Base Excess 6.2 mEq/L (-2.0 to +3.0); Calcium, Ionized (venous) 0.89 mmol/L (1.16-1.32); Chloride (VBG) 102 mmol/L (98-106); Hematocrit-VBG 28 % (36.0-47.0); Hemoglobin (Hb) 9.4 g/dL (11.7-16.1); Potassium (VBG) 3.09 mmol/L (3.70-5.30); Sodium 128.7 mmol/L (133-146); pH (venous) 7.748 (7.32-7.43)
[2022-11-08 15:40] LABS: #Eosinphils 0.1 thou/uL (0.0-0.7); #Monocytes 0.4 thou/uL (0.11-0.59); #Neutrophils 1.3 thou/uL (1.40-6.50); %Basophils 0.8 % (0.0-1.0); %Lymphocytes 26.9 % (21.0-51.0); %Monocytes 15.8 % (0.0-10.0); %Neutrophils 52.5 % (42.0-75.0); Hemoglobin 8.2 g/dL (12.0-16.0); Mean Corpuscular HGB CONC 31.7 g/dL (32.0-36.0); Mean Corpuscular Hemoglobin 31.2 pg (27.0-31.0); Mean Platelet Volume 9.7 fL (7.4-10.4); RBC Distribution Width 16.9 % (11.5-14.5); Red Blood Cell (RBC) Count 2.63 mill/uL (4.20-5.40); White Blood Cell (WBC) Count 2.5 10x3/uL (4.8-10.8)
[2022-11-08 15:45] LABS: Mean Corpuscular Volume 98.5 fl (78.0-98.0)
[2022-11-08 15:46] LABS: Platelet Count 125 10x3/uL (130-400)
[2022-11-08 15:59] LABS: Lactic Acid 1.9 mmol/L (0.5-2.2)
[2022-11-08 16:21] LABS: INR-International Normal Ratio 1.1; PTT 30.4 sec (22.9-36.1); Prothrombin Time 14.1 sec (12.0-14.7)
[2022-11-08 16:42] LABS: ALT (SGPT) 11 U/L (8-55); AST (SGOT) 20 U/L (5-34); Alkaline Phosphatase 73 U/L (40-110); Anion Gap 13 mmol/L (10-20); BUN (Urea Nitrogen) 15 mg/dL (9.8-20.1); Bilirubin, Total 0.4 mg/dL (0.2-1.2); Calc. Creatinine Clearance 15 mL/min (70-130); Calcium 8.5 mg/dL (7.8-10.44); Carbon Dioxide 25 mmol/L (23-31); Chloride 102 mmol/L (98-107); Estimated GFR 16; Globulin 2.9 g/dL (2.4-3.5); Glucose 90 mg/dL (83-110); Potassium 3.1 mmol/L (3.5-5.1); Protein, Total 5.9 g/dL (5.8-8.1); Sodium 137 mmol/L (136-145)
[2022-11-08] MEDS ORDERED: Potassium Chloride 20 MEQ in Premix Bag 1 BAG IVPB STA (18:16)
[2022-11-08] MEDS ORDERED: Dextrose 5% in Water 500 ML IV SCH (18:45)
[2022-11-08] MEDS: Lactulose 10 GM/15 ML Oral Solution PR SCH (19:08)
[2022-11-08] MEDS ORDERED: Acetaminophen 325 MG TAB PO PRN (20:21)
[2022-11-08] MEDS ORDERED: Atorvastatin Calcium 40 MG TAB PO SCH (21:00)
[2022-11-09] MEDS: Cefepime 1 GM in Sodium Chloride 0.9% 100 ML IVPB SCH (01:10)
[2022-11-09] MEDS: Lactulose 10 GM/15 ML Oral Solution PR SCH ×2 (01:10→06:00)
[2022-11-09] MEDS: Levothyroxine Sodium 50 MCG TAB PO SCH (05:27)
[2022-11-09 05:53] LABS: Cardiac Risk 2.5 (Less than 4.5)
[2022-11-09] MEDS: Rifaximin 200 MG TAB PO SCH (08:23)
[2022-11-09] MEDS ORDERED: Clopidogrel Bisulfate 75 MG TAB PO SCH (09:00)
[2022-11-09 09:03] VITALS: TEMP 98.4
[2022-11-09 09:56] LABS: #Basophils 0.1 thou/uL (0.0-0.2); #Eosinphils 0.3 thou/uL (0.0-0.7); #Monocytes 0.7 thou/uL (0.11-0.59); #Neutrophils 2.3 thou/uL (1.40-6.50); %Basophils 1.7 % (0.0-1.0); %Eosinophils 6.5 % (0.0-10.0); %Lymphocytes 26.9 % (21.0-51.0); %Monocytes 15.2 % (0.0-10.0); %Neutrophils 49.5 % (42.0-75.0); Hemoglobin 9.1 g/dL (12.0-16.0); Mean Corpuscular HGB CONC 31.2 g/dL (32.0-36.0); Mean Corpuscular Hemoglobin 31.7 pg (27.0-31.0); Mean Platelet Volume 10.4 fL (7.4-10.4); Platelet Count 150 10x3/uL (130-400); RBC Distribution Width 16.9 % (11.5-14.5); Red Blood Cell (RBC) Count 2.87 mill/uL (4.20-5.40); White Blood Cell (WBC) Count 4.6 10x3/uL (4.8-10.8)
[2022-11-09 09:59] LABS: Mean Corpuscular Volume 101.7 fl (78.0-98.0)
[2022-11-09 10:26] LABS: ALT (SGPT) 11 U/L (8-55); AST (SGOT) 24 U/L (5-34); Alkaline Phosphatase 75 U/L (40-110); Anion Gap 17 mmol/L (10-20); BUN (Urea Nitrogen) 22 mg/dL (9.8-20.1); Bilirubin, Total 0.5 mg/dL (0.2-1.2); Calc. Creatinine Clearance 9 mL/min (70-130); Calcium 8.1 mg/dL (7.8-10.44); Carbon Dioxide 21 mmol/L (23-31); Chloride 102 mmol/L (98-107); Estimated GFR 9; Globulin 3.1 g/dL (2.4-3.5); Glucose 86 mg/dL (83-110); Protein, Total 6.1 g/dL (5.8-8.1); Sodium 136 mmol/L (136-145)
[2022-11-09 15:56] VITALS: BP 121/46
== END 2022-11-09 06:40 | disposition home or self-care (01) | DRG 441 ==
LOC: ERS 20:43 → SURG B 22:44
PROVIDERS: ADMIT Internal Medicine Nephrology; ATTEND Internal Medicine
PROC: 5A1D70Z Performance of Urinary Filtration, Intermittent, Less than 6 Hours Per Day (ICD-10-PCS; 2022-11-08)
PROC: 4A10X4Z Monitoring of Central Nervous Electrical Activity, External Approach (ICD-10-PCS; principal; 2022-11-09)
DX: K72.90 Hepatic failure, unspecified without coma (principal); J18.9 Pneumonia, unspecified organism; K76.7 Hepatorenal syndrome; N18.6 End stage renal disease; I12.0 Hypertensive chronic kidney disease with stage 5 chronic kidney disease or end stage renal disease; N39.0 Urinary tract infection, site not specified; J81.1 Chronic pulmonary edema; R18.8 Other ascites; E72.20 Disorder of urea cycle metabolism, unspecified; E87.20 Acidosis, unspecified; K74.60 Unspecified cirrhosis of liver; E11.22 Type 2 diabetes mellitus with diabetic chronic kidney disease; E03.9 Hypothyroidism, unspecified; I25.10 Atherosclerotic heart disease of native coronary artery without angina pectoris; D63.1 Anemia in chronic kidney disease; L40.9 Psoriasis, unspecified; Z95.1 Presence of aortocoronary bypass graft; Z90.710 Acquired absence of both cervix and uterus; Z98.890 Other specified postprocedural states; Z88.8 Allergy status to other drugs, medicaments and biological substances; Z88.5 Allergy status to narcotic agent; Z79.82 Long term (current) use of aspirin; Z79.899 Other long term (current) drug therapy; Z91.158 Patient's noncompliance with renal dialysis for other reason; Z91.148 Patient's other noncompliance with medication regimen for other reason
CPT/HCPCS: 36415; 36416; 51701; 70450; 71045; 80053; 80061; 81001; 82140; 82550; 82805; 83605; 84146; 84443; 84484; 85025; 85610; 85730; 86706; 87077; 87086; 87186; 87340; 93005; 95712; 95819; 95957; 96365; J0692; J3370-JW; J3480; J3490; J7070

== ENCOUNTER 2023-01-15 16:24 | Inpatient (IN) | payer OTHER, MEDICARE ==
[2023-01-15 17:33] LABS: #Eosinphils 0.1 thou/uL (0.0-0.7); #Monocytes 0.4 thou/uL (0.11-0.59); #Neutrophils 1.1 thou/uL (1.40-6.50); %Basophils 1.3 % (0.0-1.0); %Eosinophils 4.7 % (0.0-10.0); %Lymphocytes 30.1 % (21.0-51.0); %Monocytes 17.4 % (0.0-10.0); %Neutrophils 46.1 % (42.0-75.0); Hematocrit 29.3 % (36.0-47.0); Mean Corpuscular HGB CONC 30.7 g/dL (32.0-36.0); Mean Corpuscular Hemoglobin 32.8 pg (27.0-31.0); Mean Corpuscular Volume 106.9 fl (78.0-98.0); Mean Platelet Volume 10.1 fL (7.4-10.4); Platelet Count 136 10x3/uL (130-400); Red Blood Cell (RBC) Count 2.74 mill/uL (4.20-5.40); White Blood Cell (WBC) Count 2.4 10x3/uL (4.8-10.8)
[2023-01-15 17:55] LABS: ALT (SGPT) 13 U/L (8-55); AST (SGOT) 19 U/L (5-34); Albumin 3.4 g/dL (3.4-4.8); Alkaline Phosphatase 92 U/L (40-110); Anion Gap 21 mmol/L (10-20); BUN (Urea Nitrogen) 54 mg/dL (9.8-20.1); Bilirubin, Total 0.4 mg/dL (0.2-1.2); Calc. Creatinine Clearance 0 mL/min (70-130); Calcium 8.8 mg/dL (7.8-10.44); Carbon Dioxide 25 mmol/L (23-31); Chloride 104 mmol/L (98-107); Estimated GFR 4; Globulin 2.7 g/dL (2.4-3.5); Glucose 198 mg/dL (83-110); Potassium 4.7 mmol/L (3.5-5.1); Protein, Total 6.1 g/dL (5.8-8.1); Sodium 145 mmol/L (136-145)
[2023-01-15 18:35] LABS: Bilirubin Negative (Negative); Blood, Urine 1+ (Negative); CAUTI Indications for Culture Alt mental st,lethar; Clarity Extra Turbid (Clear); Glucose, Urine (Dipstick) Normal (Negative); Ketone, Urine Negative (Negative); Leukocyte 500 Leu/uL (Negative); Nitrite Negative (Negative); Protein, Urine (Dipstick) 100 mg/dL (Neg-Trace); RBC/HPF 0-3 HPF (0-3); Specific Gravity, Urine 1.014 (1.002-1.036); Squamous Epithelial 0-3 HPF (0-3); Urobilinogen Normal mg/dL (Less than 2); WBC/HPF Greater than 50 HPF (0-3); pH, Urine 6.5 (5.0-9.0)
[2023-01-15 18:38] LABS: Bacteria/HPF 1+ HPF (None Seen)
[2023-01-15 18:39] LABS: Urine Culture Reflex Yes Yes
[2023-01-15 18:46] LABS: INR-International Normal Ratio 1.1; PTT 32.3 sec (22.9-36.1); Prothrombin Time 14.7 sec (12.0-14.7)
[2023-01-15 18:55] LABS: Troponin I 0.022 ng/mL (< 0.028)
[2023-01-15 19:05] LABS: SARS-CoV-2 NAA Rapid Test Not Detected (NotDetected)
[2023-01-15 19:10] LABS: Magnesium 2.9 mg/dL (1.6-2.6)
[2023-01-15] MEDS ORDERED: LevoFLOXacin 750 mg/D5W 150 ml Premix Bag ONE (19:13)
[2023-01-15] MEDS ORDERED: Magnesium 2 GM/50 ML BAG (IN WATER) ONE (19:13)
[2023-01-15] MEDS ORDERED: Ziprasidone 20 MG VIAL ONE (20:25)
[2023-01-15] MEDS ORDERED: Ondansetron PF 4 MG/2 ML Vial IVP PRN (21:34)
[2023-01-15] MEDS ORDERED: Acetaminophen 325 MG TAB PO PRN (21:34)
[2023-01-15] MEDS ORDERED: Dextrose 50% Abboject 50 ML SYRINGE SLOW IVP PRN (21:49)
[2023-01-15] MEDS ORDERED: HumaLOG 300 UNITS/3 ML VIAL SC PRN ×2 (21:49)
[2023-01-15] MEDS ORDERED: Glucagon 1 MG/ML KIT IM PRN (21:49)
[2023-01-15] MEDS ORDERED: Dextrose 5% in Water 1,000 ML IV PRN (21:49)
[2023-01-15] MEDS ORDERED: Lactulose 10 GM/15 ML Oral Solution PR SCH (22:00)
[2023-01-15 22:34] LABS: Lactic Acid 2.7 mmol/L (0.5-2.2)
[2023-01-15] MEDS: Lactulose 10 GM/15 ML Oral Solution PR SCH (22:37)
[2023-01-15 22:44] VITALS: BMI 23.4
[2023-01-16] MEDS: Lactulose 10 GM/15 ML Oral Solution PR SCH ×2 (04:10→11:02)
[2023-01-16 06:28] LABS: #Eosinphils 0.2 thou/uL (0.0-0.7); #Monocytes 0.4 thou/uL (0.11-0.59); #Neutrophils 0.9 thou/uL (1.40-6.50); %Basophils 1.3 % (0.0-1.0); %Eosinophils 6.7 % (0.0-10.0); %Lymphocytes 33.2 % (21.0-51.0); %Monocytes 16.6 % (0.0-10.0); %Neutrophils 42.2 % (42.0-75.0); Hematocrit 28.8 % (36.0-47.0); Hemoglobin 8.6 g/dL (12.0-16.0); Mean Corpuscular HGB CONC 29.9 g/dL (32.0-36.0); Mean Corpuscular Hemoglobin 32.2 pg (27.0-31.0); Mean Corpuscular Volume 107.9 fl (78.0-98.0); Mean Platelet Volume 10.2 fL (7.4-10.4); Platelet Count 121 10x3/uL (130-400); RBC Distribution Width 16.7 % (11.5-14.5); Red Blood Cell (RBC) Count 2.67 mill/uL (4.20-5.40); White Blood Cell (WBC) Count 2.2 10x3/uL (4.8-10.8)
[2023-01-16 06:53] LABS: Anion Gap 17 mmol/L (10-20); BUN (Urea Nitrogen) 58 mg/dL (9.8-20.1); Calc. Creatinine Clearance 5 mL/min (70-130); Calcium 9.1 mg/dL (7.8-10.44); Carbon Dioxide 26 mmol/L (23-31); Chloride 104 mmol/L (98-107); Estimated GFR 4; Glucose 74 mg/dL (83-110); Potassium 4.3 mmol/L (3.5-5.1); Sodium 143 mmol/L (136-145)
[2023-01-16 07:13] LABS: HBSAB Concentration Less than 8.00 mIU/mL; HBSAg Index 0.26 S/CO (0-0.99); Hep B Core Total Ab Non-Reactive (NonReactive); Hep B Core Total Index 0.13 S/CO (0-0.79); Hep B Surf AB Non-Reactive (NonReactive); Hep B Surf Ag Non-Reactive S/CO (NonReactive); Hep C IgG Ab Non-Reactive S/CO (NonReactive); Hep C Index 0.11 S/CO (0-0.79)
[2023-01-16] MEDS: Rifaximin 200 MG TAB PO SCH ×2 (14:13→22:19)
[2023-01-16] MEDS ORDERED: Rifaximin 550 MG TAB PO SCH (15:00)
[2023-01-17] MEDS: Levothyroxine Sodium 75 MCG TAB PO SCH (06:25)
[2023-01-17 07:32] LABS: #Basophils 0.1 thou/uL (0.0-0.2); #Eosinphils 0.2 thou/uL (0.0-0.7); #Monocytes 0.6 thou/uL (0.11-0.59); #Neutrophils 1.2 thou/uL (1.40-6.50); %Basophils 1.7 % (0.0-1.0); %Eosinophils 5.1 % (0.0-10.0); %Lymphocytes 33.7 % (21.0-51.0); %Monocytes 18.7 % (0.0-10.0); %Neutrophils 40.5 % (42.0-75.0); Hematocrit 25.2 % (36.0-47.0); Hemoglobin 7.5 g/dL (12.0-16.0); Mean Corpuscular HGB CONC 29.8 g/dL (32.0-36.0); Mean Corpuscular Hemoglobin 32.5 pg (27.0-31.0); Mean Corpuscular Volume 109.1 fl (78.0-98.0); Mean Platelet Volume 10.1 fL (7.4-10.4); Platelet Count 120 10x3/uL (130-400); RBC Distribution Width 16.9 % (11.5-14.5); Red Blood Cell (RBC) Count 2.31 mill/uL (4.20-5.40); White Blood Cell (WBC) Count 2.9 10x3/uL (4.8-10.8)
[2023-01-17 08:11] LABS: Anion Gap 15 mmol/L (10-20); BUN (Urea Nitrogen) 22 mg/dL (9.8-20.1); Calc. Creatinine Clearance 8 mL/min (70-130); Calcium 8.1 mg/dL (7.8-10.44); Carbon Dioxide 26 mmol/L (23-31); Chloride 103 mmol/L (98-107); Estimated GFR 8; Glucose 91 mg/dL (83-110); Potassium 4.4 mmol/L (3.5-5.1); Sodium 140 mmol/L (136-145)
[2023-01-17] MEDS: Rifaximin 200 MG TAB PO SCH ×3 (08:15→20:43)
[2023-01-17] MEDS: Ascorbic Acid 500 mg Chewable Tablet PO SCH (08:15)
[2023-01-17] MEDS: Cholecalciferol 1,000 UNITS (25 MCG) TAB PO SCH (08:15)
[2023-01-17] MEDS: Aspirin 81 mg Enteric Coated Tablet PO SCH (08:15)
[2023-01-17] MEDS: Amlodipine 5 MG TAB PO SCH (08:15)
[2023-01-17] MEDS: Ferrous Sulfate 325 MG TAB PO SCH (08:15)
[2023-01-17] MEDS ORDERED: LevoFLOXacin 250 mg/D5W 250 MG in Premix Bag 1 BAG IVPB SCH ×2 (09:00→18:00)
[2023-01-17] MEDS ORDERED: Non-Formulary Item 1 EACH (Levothyroxine Sodium [Levothyroxine Sodium] 75 MCG Capsule) PO SCH (09:00)
[2023-01-17] MEDS ORDERED: Epoetin (ESRD) 10,000 UNITS/ML VIAL SC SCH (17:00)
[2023-01-18] MEDS: Levothyroxine Sodium 75 MCG TAB PO SCH (05:05)
[2023-01-18 05:52] LABS: Anion Gap 14 mmol/L (10-20); BUN (Urea Nitrogen) 12 mg/dL (9.8-20.1); Calc. Creatinine Clearance 11 mL/min (70-130); Calcium 7.6 mg/dL (7.8-10.44); Carbon Dioxide 25 mmol/L (23-31); Chloride 104 mmol/L (98-107); Estimated GFR 11; Glucose 113 mg/dL (83-110); Potassium 4.6 mmol/L (3.5-5.1); Sodium 138 mmol/L (136-145)
[2023-01-18 06:02] LABS: #Eosinphils 0.3 thou/uL (0.0-0.7); #Monocytes 0.5 thou/uL (0.11-0.59); #Neutrophils 1.1 thou/uL (1.40-6.50); %Basophils 0.7 % (0.0-1.0); %Eosinophils 8.5 % (0.0-10.0); %Lymphocytes 38.1 % (21.0-51.0); %Monocytes 17.3 % (0.0-10.0); %Neutrophils 35.1 % (42.0-75.0); Hematocrit 23.7 % (36.0-47.0); Mean Corpuscular HGB CONC 29.5 g/dL (32.0-36.0); Mean Corpuscular Hemoglobin 32.4 pg (27.0-31.0); Mean Corpuscular Volume 109.7 fl (78.0-98.0); Platelet Count 105 10x3/uL (130-400); RBC Distribution Width 16.2 % (11.5-14.5); Red Blood Cell (RBC) Count 2.16 mill/uL (4.20-5.40); White Blood Cell (WBC) Count 3.1 10x3/uL (4.8-10.8)
[2023-01-18] MEDS: Ferrous Sulfate 325 MG TAB PO SCH (08:03)
[2023-01-18] MEDS: Rifaximin 200 MG TAB PO SCH ×3 (08:03→20:36)
[2023-01-18] MEDS: Cholecalciferol 1,000 UNITS (25 MCG) TAB PO SCH (08:03)
[2023-01-18] MEDS: Aspirin 81 mg Enteric Coated Tablet PO SCH (08:03)
[2023-01-18] MEDS: Ascorbic Acid 500 mg Chewable Tablet PO SCH (08:03)
[2023-01-18] MEDS: Amlodipine 5 MG TAB PO SCH (08:03)
[2023-01-19] MEDS: Levothyroxine Sodium 75 MCG TAB PO SCH (03:59)
[2023-01-19 05:47] LABS: Hematocrit 22.8 % (36.0-47.0); Hemoglobin 6.9 g/dL (12.0-16.0); Mean Corpuscular HGB CONC 30.3 g/dL (32.0-36.0); Mean Corpuscular Hemoglobin 32.7 pg (27.0-31.0); Mean Corpuscular Volume 108.1 fl (78.0-98.0); Platelet Count 104 10x3/uL (130-400); RBC Distribution Width 15.6 % (11.5-14.5); Red Blood Cell (RBC) Count 2.11 mill/uL (4.20-5.40); White Blood Cell (WBC) Count 3.4 10x3/uL (4.8-10.8)
[2023-01-19 06:10] LABS: Albumin 2.7 g/dL (3.4-4.8); Anion Gap 13 mmol/L (10-20); BUN (Urea Nitrogen) 23 mg/dL (9.8-20.1); BUN/Creatinine Ratio 3.78; Calc. Creatinine Clearance 7 mL/min (70-130); Calcium 7.7 mg/dL (7.8-10.44); Carbon Dioxide 26 mmol/L (23-31); Chloride 103 mmol/L (98-107); Estimated GFR 6; Glucose 101 mg/dL (83-110); Phosphorus 5.7 mg/dL (2.3-4.7); Potassium 4.7 mmol/L (3.5-5.1); Sodium 137 mmol/L (136-145)
[2023-01-19 07:09] LABS: Iron 24 ug/dL (50-170); Iron Binding Capacity, Total 178 mcg/dL (265-497)
[2023-01-19] MEDS ORDERED: Iron, Sodium Ferric Gluconate 250 MG in Sodium Chloride 0.9% 250 ML 250 ML IVPB SCH (07:30)
[2023-01-19] MEDS ORDERED: Albumin 25% 25 GM/100 ML BOT IVPB PRN (07:56)
[2023-01-19] MEDS: Aspirin 81 mg Enteric Coated Tablet PO SCH (08:23)
[2023-01-19] MEDS: Amlodipine 5 MG TAB PO SCH (08:23)
[2023-01-19] MEDS: Ascorbic Acid 500 mg Chewable Tablet PO SCH (08:23)
[2023-01-19] MEDS: Ferrous Sulfate 325 MG TAB PO SCH (08:23)
[2023-01-19] MEDS: Rifaximin 200 MG TAB PO SCH (08:24)
[2023-01-19] MEDS ORDERED: Ergocalciferol 1.25 MG(50,000 UNITS) CAP PO SCH (09:00)
[2023-01-19 10:03] VITALS: BP 138/60; TEMP 98
[2023-01-19 13:31] LABS: Hemoglobin 9.1 g/dL (12.0-16.0)
== END 2023-01-19 14:42 | disposition home or self-care (01) | DRG 441 ==
LOC: ERS 16:24 → T4-A 21:33 → OBSVTOIN 01-16 14:50
PROVIDERS: ADMIT Internal Medicine; ATTEND Internal Medicine
PROC: 30233N1 Transfusion of Nonautologous Red Blood Cells into Peripheral Vein, Percutaneous Approach (ICD-10-PCS; principal; 2023-01-19)
PROC: 30233J1 Transfusion of Nonautologous Serum Albumin into Peripheral Vein, Percutaneous Approach (ICD-10-PCS; 2023-01-19)
DX: K76.82 Hepatic encephalopathy (principal); N18.6 End stage renal disease; N39.0 Urinary tract infection, site not specified; E72.20 Disorder of urea cycle metabolism, unspecified; E87.21 Acute metabolic acidosis; I12.0 Hypertensive chronic kidney disease with stage 5 chronic kidney disease or end stage renal disease; E11.22 Type 2 diabetes mellitus with diabetic chronic kidney disease; I25.10 Atherosclerotic heart disease of native coronary artery without angina pectoris; K74.60 Unspecified cirrhosis of liver; E03.9 Hypothyroidism, unspecified; D63.1 Anemia in chronic kidney disease; L40.9 Psoriasis, unspecified; E83.51 Hypocalcemia; D72.819 Decreased white blood cell count, unspecified; Z79.899 Other long term (current) drug therapy; Z88.1 Allergy status to other antibiotic agents; Z88.8 Allergy status to other drugs, medicaments and biological substances; Z79.82 Long term (current) use of aspirin; Z79.890 Hormone replacement therapy; Z95.1 Presence of aortocoronary bypass graft; Z90.710 Acquired absence of both cervix and uterus; Z98.890 Other specified postprocedural states; Z99.2 Dependence on renal dialysis; Z11.52 Encounter for screening for COVID-19
CPT/HCPCS: 36415; 36416; 36430; 70450; 71045; 80048; 80053; 80069; 81001; 82140; 82274; 82306; 82728; 83540; 83550; 83605; 83735; 83880; 84443; 84484; 85025; 85027; 85610; 85730; 86704; 86850; 86900; 86901; 87040; 87077; 87086; 87149; 87186; 93005; G0378; J1956; J3475; J3486; P9016; Q4081

== ENCOUNTER 2023-03-04 09:30 | Inpatient (IN) | payer OTHER ==
[2023-03-04 10:36] LABS: #Eosinphils 0.1 thou/uL (0.0-0.7); #Monocytes 0.4 thou/uL (0.11-0.59); #Neutrophils 1.3 thou/uL (1.40-6.50); %Basophils 1.1 % (0.0-1.0); %Eosinophils 1.9 % (0.0-10.0); %Lymphocytes 35.3 % (21.0-51.0); %Monocytes 15.2 % (0.0-10.0); %Neutrophils 46.5 % (42.0-75.0); Hemoglobin 11.6 g/dL (12.0-16.0); Mean Corpuscular HGB CONC 31.4 g/dL (32.0-36.0); Mean Corpuscular Hemoglobin 30.6 pg (27.0-31.0); Mean Corpuscular Volume 97.6 fl (78.0-98.0); Mean Platelet Volume 10.1 fL (7.4-10.4); Platelet Count 108 10x3/uL (130-400); RBC Distribution Width 16.5 % (11.5-14.5); Red Blood Cell (RBC) Count 3.79 mill/uL (4.20-5.40); White Blood Cell (WBC) Count 2.7 10x3/uL (4.8-10.8)
[2023-03-04 11:10] LABS: Bacteria/HPF 2+ HPF (None Seen); Bilirubin Negative (Negative); Blood, Urine 2+ (Negative); CAUTI Indications for Culture Alt mental st,lethar; Clarity Extra Turbid (Clear); Glucose, Urine (Dipstick) Normal (Negative); Ketone, Urine Negative (Negative); Leukocyte 500 Leu/uL (Negative); Nitrite Negative (Negative); Protein, Urine (Dipstick) 100 mg/dL (Neg-Trace); RBC/HPF 21-50 HPF (0-3); Specific Gravity, Urine 1.012 (1.002-1.036); Urobilinogen Normal mg/dL (Less than 2); WBC/HPF Greater than 50 HPF (0-3); pH, Urine 7.5 (5.0-9.0)
[2023-03-04 11:19] LABS: Urine Culture Reflex Yes Yes
[2023-03-04] MEDS ORDERED: LevoFLOXacin 750 mg/D5W 150 ml Premix Bag ONE (12:09)
[2023-03-04 12:15] LABS: Albumin 3.6 g/dL (3.4-4.8); Chloride 103 mmol/L (98-107); Potassium 5.1 mmol/L (3.5-5.1); Sodium 142 mmol/L (136-145)
[2023-03-04 12:16] LABS: Calcium 8.9 mg/dL (7.8-10.44); Troponin I 0.031 ng/mL (< 0.028)
[2023-03-04 12:18] LABS: Bilirubin, Total 0.7 mg/dL (0.2-1.2); Globulin 3.2 g/dL (2.4-3.5); Glucose 98 mg/dL (83-110); Protein, Total 6.8 g/dL (5.8-8.1)
[2023-03-04 12:20] LABS: Anion Gap 22 mmol/L (10-20); Carbon Dioxide 22 mmol/L (23-31)
[2023-03-04 12:21] LABS: Alkaline Phosphatase 95 U/L (40-110); Calc. Creatinine Clearance 0 mL/min (70-130); Estimated GFR 7
[2023-03-04 12:22] LABS: AST (SGOT) 35 U/L (5-34); BUN (Urea Nitrogen) 42 mg/dL (9.8-20.1)
[2023-03-04 12:24] LABS: ALT (SGPT) 19 U/L (8-55)
[2023-03-04] MEDS ORDERED: Labetalol HCl 100 MG/20 ML VIAL ONE (12:41)
[2023-03-04] MEDS ORDERED: Haloperidol Lactate 5 MG/ML VIAL ONE (14:08)
[2023-03-04 17:48] LABS: HBSAB Concentration Less than 8.00 mIU/mL; HBSAg Index 0.39 S/CO (0-0.99); Hep B Core Total Ab Non-Reactive (NonReactive); Hep B Core Total Index 0.23 S/CO (0-0.79); Hep B Surf AB Non-Reactive (NonReactive); Hep B Surf Ag Non-Reactive S/CO (NonReactive); Hep C IgG Ab Non-Reactive S/CO (NonReactive); Hep C Index 0.09 S/CO (0-0.79)
[2023-03-04] MEDS: Doxycycline 100 MG in Sodium Chloride 0.9% 100 ML IVPB SCH (20:59)
[2023-03-04 21:16] VITALS: BMI 22.4
[2023-03-05 05:02] LABS: #Eosinphils 0.1 thou/uL (0.0-0.7); #Monocytes 0.4 thou/uL (0.11-0.59); #Neutrophils 1.4 thou/uL (1.40-6.50); %Basophils 1.5 % (0.0-1.0); %Eosinophils 3.4 % (0.0-10.0); %Lymphocytes 25.9 % (21.0-51.0); %Neutrophils 53.2 % (42.0-75.0); Hematocrit 29.2 % (36.0-47.0); Hemoglobin 8.9 g/dL (12.0-16.0); Mean Corpuscular HGB CONC 30.5 g/dL (32.0-36.0); Mean Corpuscular Hemoglobin 30.1 pg (27.0-31.0); Mean Corpuscular Volume 98.6 fl (78.0-98.0); Mean Platelet Volume 10.3 fL (7.4-10.4); Platelet Count 92 10x3/uL (130-400); RBC Distribution Width 16.2 % (11.5-14.5); Red Blood Cell (RBC) Count 2.96 mill/uL (4.20-5.40); White Blood Cell (WBC) Count 2.6 10x3/uL (4.8-10.8)
[2023-03-05 05:26] LABS: Phosphorus 5.7 mg/dL (2.3-4.7)
[2023-03-05 05:31] LABS: ALT (SGPT) 14 U/L (8-55); AST (SGOT) 21 U/L (5-34); Albumin 2.6 g/dL (3.4-4.8); Alkaline Phosphatase 70 U/L (40-110); Anion Gap 21 mmol/L (10-20); BUN (Urea Nitrogen) 46 mg/dL (9.8-20.1); Bilirubin, Total 0.5 mg/dL (0.2-1.2); Calc. Creatinine Clearance 6 mL/min (70-130); Calcium 8.4 mg/dL (7.8-10.44); Carbon Dioxide 22 mmol/L (23-31); Chloride 104 mmol/L (98-107); Estimated GFR 6; Globulin 2.7 g/dL (2.4-3.5); Glucose 58 mg/dL (83-110); Magnesium 2.4 mg/dL (1.6-2.6); Potassium 4.5 mmol/L (3.5-5.1); Protein, Total 5.3 g/dL (5.8-8.1); Sodium 142 mmol/L (136-145)
[2023-03-05] MEDS: Levothyroxine Sodium 75 MCG TAB PO SCH (05:46)
[2023-03-05] MEDS: Ascorbic Acid 500 mg Chewable Tablet PO SCH ×2 (09:00→13:14)
[2023-03-05] MEDS: Amlodipine 5 MG TAB PO SCH ×3 (09:00→13:16)
[2023-03-05] MEDS: Ferrous Sulfate 325 MG TAB PO SCH ×2 (09:00→13:15)
[2023-03-05] MEDS: Doxycycline 100 MG in Sodium Chloride 0.9% 100 ML IVPB SCH ×2 (13:05→21:22)
[2023-03-06 04:25] LABS: #Eosinphils 0.2 thou/uL (0.0-0.7); #Monocytes 0.5 thou/uL (0.11-0.59); #Neutrophils 1.4 thou/uL (1.40-6.50); %Basophils 1.2 % (0.0-1.0); %Eosinophils 4.9 % (0.0-10.0); %Lymphocytes 34.2 % (21.0-51.0); %Monocytes 15.7 % (0.0-10.0); %Neutrophils 43.7 % (42.0-75.0); Hemoglobin 9.4 g/dL (12.0-16.0); Mean Corpuscular HGB CONC 30.3 g/dL (32.0-36.0); Mean Corpuscular Hemoglobin 30.5 pg (27.0-31.0); Mean Corpuscular Volume 100.6 fl (78.0-98.0); Mean Platelet Volume 10.6 fL (7.4-10.4); Platelet Count 96 10x3/uL (130-400); RBC Distribution Width 16.2 % (11.5-14.5); Red Blood Cell (RBC) Count 3.08 mill/uL (4.20-5.40); White Blood Cell (WBC) Count 3.3 10x3/uL (4.8-10.8)
[2023-03-06 04:43] LABS: Anion Gap 14 mmol/L (10-20); BUN (Urea Nitrogen) 23 mg/dL (9.8-20.1); Calc. Creatinine Clearance 9 mL/min (70-130); Calcium 8.5 mg/dL (7.8-10.44); Carbon Dioxide 28 mmol/L (23-31); Chloride 101 mmol/L (98-107); Estimated GFR 9; Glucose 78 mg/dL (83-110); Potassium 4.5 mmol/L (3.5-5.1); Sodium 138 mmol/L (136-145)
[2023-03-06] MEDS: Levothyroxine Sodium 75 MCG TAB PO SCH (06:05)
[2023-03-06] MEDS: Doxycycline 100 MG in Sodium Chloride 0.9% 100 ML IVPB SCH ×2 (08:32→09:48)
[2023-03-06] MEDS: Ferrous Sulfate 325 MG TAB PO SCH (08:33)
[2023-03-06] MEDS: Ascorbic Acid 500 mg Chewable Tablet PO SCH (08:34)
[2023-03-06] MEDS ORDERED: Aspirin 81 mg Enteric Coated Tablet PO SCH (09:00)
[2023-03-06] MEDS ORDERED: Cholecalciferol 1,000 UNITS (25 MCG) TAB PO SCH (09:00)
[2023-03-06] MEDS: Amlodipine 5 MG TAB PO SCH (09:47)
[2023-03-06 11:55] VITALS: BP 146/53; TEMP 98.3
[2023-03-07] MEDS ORDERED: FLU VACC QS2023(65UP)/MF59C/PF 60 MCG/0.5 ML SYRINGE IM ONE (09:00)
== END 2023-03-06 12:44 | disposition home or self-care (01) | DRG 441 ==
LOC: ERS 09:30 → ERHOLD 13:27 → T4-B 16:34
PROVIDERS: ADMIT Internal Medicine; ATTEND Family Medicine
DX: K76.82 Hepatic encephalopathy (principal); N18.6 End stage renal disease; N39.0 Urinary tract infection, site not specified; I12.0 Hypertensive chronic kidney disease with stage 5 chronic kidney disease or end stage renal disease; K72.90 Hepatic failure, unspecified without coma; E78.5 Hyperlipidemia, unspecified; I25.10 Atherosclerotic heart disease of native coronary artery without angina pectoris; E03.9 Hypothyroidism, unspecified; E11.22 Type 2 diabetes mellitus with diabetic chronic kidney disease; D63.1 Anemia in chronic kidney disease; D63.8 Anemia in other chronic diseases classified elsewhere; K74.60 Unspecified cirrhosis of liver; B95.2 Enterococcus as the cause of diseases classified elsewhere; Z88.8 Allergy status to other drugs, medicaments and biological substances; Z88.1 Allergy status to other antibiotic agents; Z79.890 Hormone replacement therapy; Z79.899 Other long term (current) drug therapy; Z99.2 Dependence on renal dialysis; Z95.1 Presence of aortocoronary bypass graft; Z98.890 Other specified postprocedural states; Z90.710 Acquired absence of both cervix and uterus
CPT/HCPCS: 36415; 36416; 51701; 70450; 71045; 80048; 80053; 81001; 82140; 83735; 84100; 84484; 85025; 86704; 87077; 87086; 87186; 93005; 96365; 96372; 96375; J1630; J1956; J3490

== ENCOUNTER 2023-04-06 11:38 | Emergency (ER) | payer MEDICARE, OTHER ==
[2023-04-06] MEDS ORDERED: Ipratropium/Albuterol 3 ML NEB ONE (12:50)
[2023-04-06 13:08] LABS: Hematocrit 26.2 % (36.0-47.0); Hemoglobin 7.8 g/dL (12.0-16.0); Mean Corpuscular HGB CONC 29.8 g/dL (32.0-36.0); Mean Corpuscular Hemoglobin 30.5 pg (27.0-31.0); Mean Corpuscular Volume 102.3 fl (78.0-98.0); Red Blood Cell (RBC) Count 2.56 mill/uL (4.20-5.40); White Blood Cell (WBC) Count 6.8 10x3/uL (4.8-10.8)
[2023-04-06 13:09] LABS: Manual Diff?? YES; Mean Platelet Volume 10.8 fL (7.4-10.4); Platelet Count 132 10x3/uL (130-400); RBC Distribution Width 17.9 % (11.5-14.5)
[2023-04-06 13:14] LABS: Delete Auto Diff?? YES
[2023-04-06 13:17] LABS: SARS-CoV-2 NAA Rapid Test Not Detected (NotDetected)
[2023-04-06 13:26] LABS: ALT (SGPT) 12 U/L (8-55); AST (SGOT) 27 U/L (5-34); Albumin 2.8 g/dL (3.4-4.8); Alkaline Phosphatase 90 U/L (40-110); Anion Gap 17 mmol/L (10-20); BUN (Urea Nitrogen) 45 mg/dL (9.8-20.1); Bilirubin, Total 0.6 mg/dL (0.2-1.2); Calc. Creatinine Clearance 0 mL/min (70-130); Calcium 8.3 mg/dL (7.8-10.44); Carbon Dioxide 24 mmol/L (23-31); Chloride 99 mmol/L (98-107); Estimated GFR 6; Globulin 3.8 g/dL (2.4-3.5); Glucose 72 mg/dL (83-110); Potassium 4.9 mmol/L (3.5-5.1); Protein, Total 6.6 g/dL (5.8-8.1); Sodium 135 mmol/L (136-145)
[2023-04-06 13:31] LABS: Band 13 % (5-11); Eosinophils 3 % (0-10); Lymphocytes 13 % (21-51); Monocytes 13 % (0-10); Neutrophil 50 % (42-75); Reactive Lymphocytes 6 % (0-10)
[2023-04-06 13:32] LABS: Anisocytosis SLIGHT = 6-15 cells (100X) (0-5/hpf); Hypochromia SLIGHT = 6-15 cells (100X) (0-5/hpf); Macrocytosis SLIGHT = 6-15 cells (100X) (0-5/hpf); Ovalocytes SLIGHT = 2-5 cells (100X) (0-1/hpf); Platelet Adequacy Comment Platelets Normal; Polychromasia SLIGHT = 2-3 cells (100X) (0-2/hpf)
== END 2023-04-06 15:50 | disposition home or self-care (01) ==
LOC: ERS 11:38
DX: E11.22 Type 2 diabetes mellitus with diabetic chronic kidney disease (principal); N18.6 End stage renal disease; I12.0 Hypertensive chronic kidney disease with stage 5 chronic kidney disease or end stage renal disease; R05.9 Cough, unspecified; J81.1 Chronic pulmonary edema; Z79.82 Long term (current) use of aspirin; Z79.4 Long term (current) use of insulin
CPT/HCPCS: 0240U; 71045; 80053; 83605; 83880; 85025; 94640; 36415; J7620

== ENCOUNTER 2023-05-18 10:25 | Observation (INO) | payer OTHER ==
[2023-05-18 11:33] LABS: #Basophils 0.1 thou/uL (0.0-0.2); #Eosinphils 0.2 thou/uL (0.0-0.7); #Monocytes 0.4 thou/uL (0.11-0.59); #Neutrophils 2.8 thou/uL (1.40-6.50); %Basophils 1.4 % (0.0-1.0); %Eosinophils 3.7 % (0.0-10.0); %Monocytes 9.1 % (0.0-10.0); %Neutrophils 64.3 % (42.0-75.0); Hematocrit 31.1 % (36.0-47.0); Hemoglobin 9.5 g/dL (12.0-16.0); Mean Corpuscular HGB CONC 30.5 g/dL (32.0-36.0); Mean Corpuscular Hemoglobin 30.5 pg (27.0-31.0); Mean Platelet Volume 10.4 fL (7.4-10.4); Platelet Count 123 10x3/uL (130-400); RBC Distribution Width 18.3 % (11.5-14.5); Red Blood Cell (RBC) Count 3.11 mill/uL (4.20-5.40); White Blood Cell (WBC) Count 4.3 10x3/uL (4.8-10.8)
[2023-05-18 11:36] LABS: Bacteria/HPF None Seen HPF (None Seen); Bilirubin Negative (Negative); Blood, Urine Negative (Negative); CAUTI Indications for Culture Alt mental st,lethar; Clarity Clear (Clear); Glucose, Urine (Dipstick) Normal (Negative); Ketone, Urine Negative (Negative); Leukocyte Negative Leu/uL (Negative); Nitrite Negative (Negative); Protein, Urine (Dipstick) 50 mg/dL (Neg-Trace); RBC/HPF 0-3 HPF (0-3); Specific Gravity, Urine 1.014 (1.002-1.036); Squamous Epithelial 0-3 HPF (0-3); Urobilinogen Normal mg/dL (Less than 2); WBC/HPF 0-3 HPF (0-3)
[2023-05-18 11:38] LABS: Urine Culture Reflex No No
[2023-05-18 11:55] LABS: ALT (SGPT) 17 U/L (8-55); AST (SGOT) 37 U/L (5-34); Albumin 3.1 g/dL (3.4-4.8); Alkaline Phosphatase 93 U/L (40-110); Anion Gap 17 mmol/L (10-20); BUN (Urea Nitrogen) 31 mg/dL (9.8-20.1); Bilirubin, Total 0.6 mg/dL (0.2-1.2); Calc. Creatinine Clearance 0 mL/min (70-130); Calcium 8.5 mg/dL (7.8-10.44); Carbon Dioxide 28 mmol/L (23-31); Chloride 102 mmol/L (98-107); Estimated GFR 9; Globulin 3.9 g/dL (2.4-3.5); Glucose 71 mg/dL (83-110); Lipase Less than 4 U/L (8-78); Potassium 5.6 mmol/L (3.5-5.1); Sodium 141 mmol/L (136-145)
[2023-05-18 11:59] LABS: Troponin I 0.034 ng/mL (< 0.028)
[2023-05-18 12:00] LABS: INR-International Normal Ratio 1.1; PTT 29.4 sec (22.9-36.1); Prothrombin Time 14.4 sec (12.0-14.7)
[2023-05-18] MEDS ORDERED: Lactulose 20 GM (30 mL) UDCUP ONE (12:56)
[2023-05-18] MEDS ORDERED: Pantoprazole 40 MG VIAL ONE (12:56)
[2023-05-18] MEDS ORDERED: Ondansetron PF 4 MG/2 ML Vial IVP PRN (13:06)
[2023-05-18] MEDS ORDERED: Dextrose 5% in Water 1,000 ML IV PRN (13:25)
[2023-05-18] MEDS ORDERED: Dextrose 50% Abboject 50 ML SYRINGE SLOW IVP PRN (13:25)
[2023-05-18] MEDS ORDERED: Glucagon 1 MG/ML KIT IM PRN (13:25)
[2023-05-18] MEDS ORDERED: HumaLOG 300 UNITS/3 ML VIAL SC PRN (13:25)
[2023-05-18] MEDS: Lactulose 20 GM (30 mL) UDCUP PO SCH ×2 (13:54→18:07)
[2023-05-18] MEDS ORDERED: Iopamidol-370 76% 500 ML MDV (1 ML CHARGE) ONE (14:16)
[2023-05-18 15:17] LABS: Lactic Acid 2.1 mmol/L (0.5-2.2)
[2023-05-18 15:25] LABS: Troponin I 0.022 ng/mL (< 0.028)
[2023-05-18 15:30] LABS: HBSAB Concentration Less than 8.00 mIU/mL; HBSAg Index 0.19 S/CO (0-0.99); Hep B Core Total Ab Non-Reactive (NonReactive); Hep B Surf AB Non-Reactive (NonReactive); Hep B Surf Ag Non-Reactive S/CO (NonReactive); Hep C IgG Ab Non-Reactive S/CO (NonReactive); Hep C Index 0.14 S/CO (0-0.79)
[2023-05-18] MEDS: Epoetin (ESRD) 10,000 UNITS/ML VIAL SC SCH (20:51)
[2023-05-18] MEDS: Rifaximin 550 MG TAB PO SCH (20:52)
[2023-05-18] MEDS: Pantoprazole 40 MG VIAL IVP SCH (20:52)
[2023-05-18 21:13] LABS: Troponin I 0.034 ng/mL (< 0.028)
[2023-05-18 22:13] VITALS: BMI 22.4
[2023-05-19] MEDS: Levothyroxine Sodium 75 MCG TAB PO SCH (05:08)
[2023-05-19 06:43] LABS: ALT (SGPT) 15 U/L (8-55); AST (SGOT) 28 U/L (5-34); Albumin 2.6 g/dL (3.4-4.8); Alkaline Phosphatase 78 U/L (40-110); Anion Gap 11 mmol/L (10-20); BUN (Urea Nitrogen) 16 mg/dL (9.8-20.1); Bilirubin, Total 0.5 mg/dL (0.2-1.2); Calc. Creatinine Clearance 12 mL/min (70-130); Calcium 8.3 mg/dL (7.8-10.44); Carbon Dioxide 30 mmol/L (23-31); Chloride 103 mmol/L (98-107); Estimated GFR 13; Globulin 3.4 g/dL (2.4-3.5); Glucose 59 mg/dL (83-110); Potassium 4.1 mmol/L (3.5-5.1); Sodium 140 mmol/L (136-145)
[2023-05-19 07:49] LABS: #Basophils 0.1 thou/uL (0.0-0.2); #Eosinphils 0.2 thou/uL (0.0-0.7); #Monocytes 0.4 thou/uL (0.11-0.59); %Basophils 1.4 % (0.0-1.0); %Eosinophils 5.9 % (0.0-10.0); %Lymphocytes 24.5 % (21.0-51.0); %Monocytes 12.1 % (0.0-10.0); %Neutrophils 55.8 % (42.0-75.0); Hematocrit 28.8 % (36.0-47.0); Hemoglobin 8.8 g/dL (12.0-16.0); Mean Corpuscular HGB CONC 30.6 g/dL (32.0-36.0); Mean Corpuscular Hemoglobin 29.9 pg (27.0-31.0); Mean Platelet Volume 11.1 fL (7.4-10.4); Platelet Count 106 10x3/uL (130-400); RBC Distribution Width 18.2 % (11.5-14.5); Red Blood Cell (RBC) Count 2.94 mill/uL (4.20-5.40); White Blood Cell (WBC) Count 3.6 10x3/uL (4.8-10.8)
[2023-05-19 13:00] VITALS: BP 156/68; TEMP 97.8
[2023-05-19] MEDS: FLU VACC QS2023(65UP)/MF59C/PF 60 MCG/0.5 ML SYRINGE IM ONE (13:06)
== END 2023-05-19 14:34 | disposition home or self-care (01) ==
LOC: ERS 10:25 → ERHOLD 13:29 → 2NO 17:41
PROVIDERS: ADMIT Internal Medicine; ATTEND Hospitalist
DX: K76.82 Hepatic encephalopathy (principal); E11.22 Type 2 diabetes mellitus with diabetic chronic kidney disease; N18.6 End stage renal disease; D63.8 Anemia in other chronic diseases classified elsewhere; K74.60 Unspecified cirrhosis of liver; E87.5 Hyperkalemia; I50.30 Unspecified diastolic (congestive) heart failure; E03.9 Hypothyroidism, unspecified; I25.10 Atherosclerotic heart disease of native coronary artery without angina pectoris; Z95.5 Presence of coronary angioplasty implant and graft; Z99.2 Dependence on renal dialysis; Z88.8 Allergy status to other drugs, medicaments and biological substances; Z88.5 Allergy status to narcotic agent; Z88.1 Allergy status to other antibiotic agents; Z79.82 Long term (current) use of aspirin; Z79.890 Hormone replacement therapy; Z79.899 Other long term (current) drug therapy; Z79.4 Long term (current) use of insulin; Z90.710 Acquired absence of both cervix and uterus
CPT/HCPCS: 51701; 70450; 71045; 74177; 80053 ×2; 81001; 82140; 82962 ×2; 83605; 83690; 84484 ×2; 85025 ×2; 85610; 85730; 86704; 86850; 86900; 86901; 93005; 94760; 96372; 96374; 96376 ×2; 99285; G0378 ×3; Q4081; 36415; 36416; 82274; C9113; Q9967

== ENCOUNTER 2023-08-13 07:58 | Inpatient (IN) | payer OTHER ==
[2023-08-13 08:59] LABS: #Basophils 0.04 10x3/uL (0.0-0.2); %Basophils 1.1 % (0.0-1.0); %Eosinophils 2.2 % (0.0-10.0); %Lymphocytes 22.1 % (21.0-51.0); %Monocytes 10.6 % (0.0-10.0); %Neutrophils 63.7 % (42.0-75.0); Hematocrit 41.5 % (36.0-47.0); Hemoglobin 13.3 g/dL (12.0-16.0); Mean Corpuscular Hemoglobin 29.6 pg (27.0-31.0); Mean Corpuscular Volume 92.2 fL (78.0-98.0); Mean Platelet Volume 10.6 fL (7.4-10.4); Platelet Count 105 10x3/uL (130-400); RBC Distribution Width 18.1 % (11.5-14.5)
[2023-08-13 09:35] LABS: Globulin 4.2 g/dL (2.4-3.5)
[2023-08-13 09:39] LABS: ALT (SGPT) 23 U/L (8-55); AST (SGOT) 44 U/L (5-34); Acetaminophen Less than 10 mcg/mL (10.0-30.0); Albumin 2.9 g/dL (3.4-4.8); Alcohol Less than 10.0 mg/dL (Less than 10); Alkaline Phosphatase 122 U/L (40-110); Anion Gap 19 mmol/L (10-20); BUN (Urea Nitrogen) 45 mg/dL (9.8-20.1); Bilirubin, Total 0.7 mg/dL (0.2-1.2); Calc. Creatinine Clearance 0 mL/min (70-130); Calcium 9.1 mg/dL (7.8-10.44); Carbon Dioxide 24 mmol/L (23-31); Chloride 103 mmol/L (98-107); Estimated GFR 6; Glucose 94 mg/dL (83-110); Potassium 5.1 mmol/L (3.5-5.1); Protein, Total 7.1 g/dL (5.8-8.1); Salicylate Less than 8.0 mg/dL (15.0-30.0); Sodium 141 mmol/L (136-145)
[2023-08-13] MEDS ORDERED: Lactulose 20 GM (30 mL) UDCUP ONE (10:00)
[2023-08-13 10:16] LABS: Bilirubin Negative (Negative); Blood, Urine Negative (Negative); CAUTI Indications for Culture Alt mental st,lethar; Clarity Clear (Clear); Glucose, Urine (Dipstick) Normal (Negative); Ketone, Urine Negative (Negative); Leukocyte 250 Leu/uL (Negative); Nitrite Negative (Negative); Protein, Urine (Dipstick) 70 mg/dL (Neg-Trace); RBC/HPF 0-3 HPF (0-3); Specific Gravity, Urine 1.014 (1.002-1.036); Squamous Epithelial 0-3 HPF (0-3); Urobilinogen Normal mg/dL (Less than 2); WBC/HPF 21-50 HPF (0-3)
[2023-08-13 10:17] LABS: Bacteria/HPF 1+ HPF (None Seen)
[2023-08-13 10:18] LABS: Urine Culture Reflex Yes Yes
[2023-08-13 10:19] LABS: Amphetamine Not Detected (NotDetected); Barbiturates Screen Not Detected (NotDetected); Benzodiazepine Screen Not Detected (NotDetected); Cocaine Metabolite Screen Not Detected (NotDetected); Methadone Not Detected (NotDetected); Methamphetamine Not Detected (NotDetected); Opiate Screen Not Detected (NotDetected); Oxycodone Screen Not Detected (NotDetected); Phencyclidine (PCP) Not Detected (NotDetected); THC/Cannabinoid Screen Not Detected (NotDetected); Tricyclic Screen Not Detected (NotDetected)
[2023-08-13 10:32] LABS: Free T4 (Free Thyroxine) 1.08 ng/dL (0.70-1.48); Thyroid Stimulating Hormone 0.8361 uIU/mL (0.35-4.94)
[2023-08-13] MEDS ORDERED: Ondansetron ODT 4 MG TAB PO PRN (10:57)
[2023-08-13] MEDS ORDERED: Ondansetron PF 4 MG/2 ML Vial IVP PRN (10:59)
[2023-08-13] MEDS ORDERED: Dextrose 5% in Water 1,000 ML IV PRN (11:04)
[2023-08-13] MEDS ORDERED: Glucagon 1 MG/ML KIT IM PRN (11:04)
[2023-08-13] MEDS: Lactulose 10 GM/15 ML Oral Solution PR SCH ×3 (12:09→22:19)
[2023-08-13] MEDS: Pantoprazole DR 40 MG TAB PO SCH (12:10)
[2023-08-13] MEDS: D5 1/2 NS 500 ML IV SCH (12:48)
[2023-08-13] MEDS: Lactulose 20 GM (30 mL) UDCUP PO SCH (15:10)
[2023-08-13] MEDS ORDERED: Vancomycin Hemodialysis Sliding Scale FS SCH (16:00)
[2023-08-13] MEDS ORDERED: Vancomycin 1 GM in Premix 1 BAG IVPB SCH (21:00)
[2023-08-13] MEDS: Vancomycin (BATCH) 1.25 GM in Premix 1 BAG IVPB SCH (22:12)
[2023-08-13] MEDS: Rifaximin 550 MG TAB PO SCH (22:17)
[2023-08-13 22:20] LABS: #Basophils 0.03 10x3/uL (0.0-0.2); %Basophils 0.8 % (0.0-1.0); %Eosinophils 2.2 % (0.0-10.0); %Lymphocytes 21.2 % (21.0-51.0); %Monocytes 14.3 % (0.0-10.0); %Neutrophils 61.5 % (42.0-75.0); Hematocrit 39.8 % (36.0-47.0); Hemoglobin 12.6 g/dL (12.0-16.0); Mean Corpuscular HGB CONC 31.7 g/dL (32.0-36.0); Mean Corpuscular Hemoglobin 29.3 pg (27.0-31.0); Mean Corpuscular Volume 92.6 fL (78.0-98.0); Mean Platelet Volume 10.7 fL (7.4-10.4); Platelet Count 90 10x3/uL (130-400); RBC Distribution Width 18.1 % (11.5-14.5)
[2023-08-13] MEDS: Metoprolol Tartrate 5 MG (5 mL) VIAL IVP SCH (22:29)
[2023-08-14] MEDS: Pantoprazole 40 MG VIAL IVP SCH (00:37)
[2023-08-14] MEDS: LevoFLOXacin 750 mg/D5W 750 MG in Premix 1 BAG IVPB SCH (00:37)
[2023-08-14] MEDS: hydrALAZINE 20 MG/ML VIAL SLOW IVP SCH (00:37)
[2023-08-14] MEDS: Octreotide Acetate 1,250 MCG in Sodium Chloride 0.9% 250 ML 250 ML IVPB SCH (02:03)
[2023-08-14 05:21] LABS: #Basophils 0.06 10x3/uL (0.0-0.2); %Basophils 1.2 % (0.0-1.0); %Eosinophils 1.6 % (0.0-10.0); %Lymphocytes 9.4 % (21.0-51.0); %Monocytes 13.3 % (0.0-10.0); %Neutrophils 74.1 % (42.0-75.0); Hematocrit 40.3 % (36.0-47.0); Hemoglobin 12.3 g/dL (12.0-16.0); Mean Corpuscular HGB CONC 30.5 g/dL (32.0-36.0); Mean Corpuscular Hemoglobin 29.6 pg (27.0-31.0); Mean Corpuscular Volume 96.9 fL (78.0-98.0); Platelet Count 96 10x3/uL (130-400); RBC Distribution Width 18.2 % (11.5-14.5); Red Blood Cell (RBC) Count 4.16 mill/uL (4.20-5.40)
[2023-08-14 05:23] LABS: Globulin 3.3 g/dL (2.4-3.5)
[2023-08-14] MEDS: Levothyroxine Sodium 75 MCG TAB PO SCH (05:29)
[2023-08-14 05:31] LABS: ALT (SGPT) 18 U/L (8-55); AST (SGOT) 36 U/L (5-34); Albumin 2.5 g/dL (3.4-4.8); Alkaline Phosphatase 92 U/L (40-110); Anion Gap 15 mmol/L (10-20); BUN (Urea Nitrogen) 14 mg/dL (9.8-20.1); Bilirubin, Total 1.2 mg/dL (0.2-1.2); Calc. Creatinine Clearance 13 mL/min (70-130); Calcium 8.3 mg/dL (7.8-10.44); Carbon Dioxide 24 mmol/L (23-31); Chloride 105 mmol/L (98-107); Estimated GFR 15; Glucose 59 mg/dL (83-110); Potassium 4.2 mmol/L (3.5-5.1); Protein, Total 5.8 g/dL (5.8-8.1); Sodium 140 mmol/L (136-145)
[2023-08-14] MEDS: Dextrose 50% Abboject 50 ML SYRINGE SLOW IVP PRN (06:03)
[2023-08-14] MEDS: Dextrose 5 %-0.45 % NaCl 500 ML IV SCH (06:49)
[2023-08-14] MEDS: D5 1/2 NS 500 ML IV SCH (08:16)
[2023-08-14] MEDS: Aspirin 81 mg Enteric Coated Tablet PO SCH (08:42)
[2023-08-14] MEDS: Cholecalciferol 1,000 UNITS (25 MCG) TAB PO SCH (08:43)
[2023-08-14] MEDS: Ferrous Sulfate 325 MG TAB PO SCH (08:43)
[2023-08-14] MEDS ORDERED: Pantoprazole DR 40 MG TAB PO SCH (09:00)
[2023-08-14 14:33] LABS: Hematocrit 40.2 % (36.0-47.0); Hemoglobin 12.2 g/dL (12.0-16.0)
[2023-08-14] MEDS: Lactulose 20 GM (30 mL) UDCUP PO SCH (15:05)
[2023-08-14 19:53] LABS: Hematocrit 40.8 % (36.0-47.0); Hemoglobin 12.2 g/dL (12.0-16.0)
[2023-08-14 20:28] VITALS: BMI 24.1
[2023-08-15 05:17] LABS: Globulin 3.3 g/dL (2.4-3.5)
[2023-08-15 05:27] LABS: ALT (SGPT) 14 U/L (8-55); AST (SGOT) 26 U/L (5-34); Albumin 2.3 g/dL (3.4-4.8); Alkaline Phosphatase 85 U/L (40-110); Anion Gap 15 mmol/L (10-20); BUN (Urea Nitrogen) 24 mg/dL (9.8-20.1); Bilirubin, Total 0.8 mg/dL (0.2-1.2); Calc. Creatinine Clearance 9 mL/min (70-130); Carbon Dioxide 24 mmol/L (23-31); Chloride 106 mmol/L (98-107); Estimated GFR 8; Glucose 90 mg/dL (83-110); Protein, Total 5.6 g/dL (5.8-8.1); Sodium 140 mmol/L (136-145)
[2023-08-15 07:03] LABS: #Basophils 0.05 10x3/uL (0.0-0.2); %Basophils 1.3 % (0.0-1.0); %Lymphocytes 21.5 % (21.0-51.0); %Monocytes 14.4 % (0.0-10.0); %Neutrophils 58.5 % (42.0-75.0); Hematocrit 37.9 % (36.0-47.0); Hemoglobin 11.8 g/dL (12.0-16.0); Mean Corpuscular HGB CONC 31.1 g/dL (32.0-36.0); Mean Corpuscular Hemoglobin 30.3 pg (27.0-31.0); Mean Corpuscular Volume 97.4 fL (78.0-98.0); Platelet Count 97 10x3/uL (130-400); Red Blood Cell (RBC) Count 3.89 mill/uL (4.20-5.40)
[2023-08-15] MEDS ORDERED: Heparin 10,000 UNITS/ 10 ML VIAL ONE (08:29)
[2023-08-15] MEDS: Pantoprazole DR 40 MG TAB PO SCH (09:36)
[2023-08-15] MEDS: Ciprofloxacin 500 MG TAB PO SCH (09:36)
[2023-08-15] MEDS ORDERED: LevoFLOXacin 500 mg/D5W 500 MG in Premix 1 BAG IVPB SCH (21:00)
[2023-08-16 04:02] LABS: #Basophils 0.05 10x3/uL (0.0-0.2); %Basophils 1.4 % (0.0-1.0); %Eosinophils 6.2 % (0.0-10.0); %Lymphocytes 18.4 % (21.0-51.0); %Monocytes 15.4 % (0.0-10.0); %Neutrophils 58.3 % (42.0-75.0); Hematocrit 38.6 % (36.0-47.0); Hemoglobin 11.9 g/dL (12.0-16.0); Mean Corpuscular HGB CONC 30.8 g/dL (32.0-36.0); Mean Corpuscular Volume 97.2 fL (78.0-98.0); Mean Platelet Volume 9.9 fL (7.4-10.4); Platelet Count 76 10x3/uL (130-400); RBC Distribution Width 17.5 % (11.5-14.5); Red Blood Cell (RBC) Count 3.97 mill/uL (4.20-5.40)
[2023-08-16] MEDS: Vancomycin (BATCH) 1.25 GM in Premix 1 BAG IVPB SCH (15:13)
[2023-08-16] MEDS ORDERED: Vancomycin Hemodialysis Sliding Scale FS SCH (15:15)
[2023-08-17 03:57] LABS: #Basophils 0.04 10x3/uL (0.0-0.2); %Eosinophils 5.3 % (0.0-10.0); %Neutrophils 58.4 % (42.0-75.0); Hematocrit 42.5 % (36.0-47.0); Mean Corpuscular HGB CONC 30.6 g/dL (32.0-36.0); Mean Corpuscular Hemoglobin 29.7 pg (27.0-31.0); Mean Platelet Volume 10.5 fL (7.4-10.4); Platelet Count 77 10x3/uL (130-400); RBC Distribution Width 17.2 % (11.5-14.5); Red Blood Cell (RBC) Count 4.38 mill/uL (4.20-5.40)
[2023-08-17 07:57] LABS: Vancomycin, Trough 25.5 ug/mL
[2023-08-17] MEDS ORDERED: Vancomycin 1 GM in Sodium Chloride 0.9% 250 ML 250 ML IVPB SCH (08:00)
[2023-08-17] MEDS ORDERED: Heparin 10,000 UNITS/ 10 ML VIAL ONE (09:21)
[2023-08-17 09:54] VITALS: BP 126/45; TEMP 97.9
[2023-08-17] MEDS: Vancomycin HCl 250 MG in Sodium Chloride 0.9% 100 ML IVPB SCH (15:40)
[2023-08-17] MEDS ORDERED: Vancomycin HCl 250 MG in Sodium Chloride 0.9% 100 ML IVPB SCH (17:00)
== END 2023-08-17 17:28 | disposition home health service (06) | DRG 441 ==
LOC: ERS 07:58 → T4-B 10:44 → 2NO 20:10 → OBSVTOIN 08-14 08:58
PROVIDERS: ADMIT Internal Medicine; ATTEND Internal Medicine
DX: K76.82 Hepatic encephalopathy (principal); N18.6 End stage renal disease; K92.2 Gastrointestinal hemorrhage, unspecified; I50.32 Chronic diastolic (congestive) heart failure; N39.0 Urinary tract infection, site not specified; R44.3 Hallucinations, unspecified; E72.20 Disorder of urea cycle metabolism, unspecified; I13.2 Hypertensive heart and chronic kidney disease with heart failure and with stage 5 chronic kidney disease, or end stage renal disease; I25.10 Atherosclerotic heart disease of native coronary artery without angina pectoris; K75.81 Nonalcoholic steatohepatitis (NASH); E11.22 Type 2 diabetes mellitus with diabetic chronic kidney disease; K76.9 Liver disease, unspecified; D63.1 Anemia in chronic kidney disease; K74.60 Unspecified cirrhosis of liver; B95.2 Enterococcus as the cause of diseases classified elsewhere; Z95.1 Presence of aortocoronary bypass graft; Z99.2 Dependence on renal dialysis; Z88.8 Allergy status to other drugs, medicaments and biological substances; Z79.82 Long term (current) use of aspirin; Z98.890 Other specified postprocedural states; Z90.710 Acquired absence of both cervix and uterus; Z91.199 Patient's noncompliance with other medical treatment and regimen due to unspecified reason
CPT/HCPCS: 36415; 36416; 51701; 70450; 80053; 80202; 80306; 80307; 81001; 82140; 82274; 83735; 84439; 84443; 85025; 86850; 86900; 86901; 87077; 87086; 87186; 90935; 93005; 94760; 96374; 96375; C9113; G0257; G0378; J1644; J1956; J2354; J3370; J7042; J7050; J7999